=== PATIENT | male | born 1955 | race Caucasian/White ===

== ENCOUNTER → 2020-09-05 10:25 | Outpatient (BNVA) | payer OTHER, SELFPAY | PROVIDERS: PCP Nurse Practitioner Family; Referring Provider Nurse Practitioner Family; Visit Provider Nurse Practitioner Gerontology | DX: E10.42 Type 1 diabetes mellitus with diabetic polyneuropathy (principal); E78.5 Hyperlipidemia, unspecified; I10 Essential (primary) hypertension | CPT/HCPCS: 82947 ==

== ENCOUNTER → 2020-12-06 09:45 | Outpatient (BNVA) | payer OTHER, SELFPAY | PROVIDERS: PCP Nurse Practitioner Family; Visit Provider Nurse Practitioner Gerontology | DX: E10.42 Type 1 diabetes mellitus with diabetic polyneuropathy (principal); I10 Essential (primary) hypertension; E78.5 Hyperlipidemia, unspecified | CPT/HCPCS: 82947 ==

== ENCOUNTER → 2021-03-07 09:50 | Outpatient (BNVA) | payer OTHER, SELFPAY | PROVIDERS: PCP Nurse Practitioner Family; Visit Provider Nurse Practitioner Gerontology | DX: E10.65 Type 1 diabetes mellitus with hyperglycemia (principal); I10 Essential (primary) hypertension; E78.5 Hyperlipidemia, unspecified | CPT/HCPCS: 82947 ==

== ENCOUNTER → 2021-06-06 09:43 | Outpatient (BNVA) | payer OTHER, SELFPAY | PROVIDERS: PCP Nurse Practitioner Family; Visit Provider Nurse Practitioner Gerontology | DX: E10.65 Type 1 diabetes mellitus with hyperglycemia (principal); I10 Essential (primary) hypertension; E78.5 Hyperlipidemia, unspecified | CPT/HCPCS: 82947; 95251 ==

== ENCOUNTER → 2021-10-22 08:51 | Outpatient (BNVA) | payer OTHER, SELFPAY | PROVIDERS: PCP Nurse Practitioner Family; Visit Provider Nurse Practitioner Gerontology | DX: E10.65 Type 1 diabetes mellitus with hyperglycemia (principal); E78.5 Hyperlipidemia, unspecified; I10 Essential (primary) hypertension | CPT/HCPCS: 82947; 83036 ==

== ENCOUNTER 2021-11-24 07:09 | Outpatient (REF) | payer OTHER, SELFPAY ==
[2021-11-24 11:54] LABS: Alanine Aminotransferase 24 U/L (0-40); Albumin Level 3.8 g/dL (3.5-5.0); Alkaline Phosphatase 55 U/L (39-117); Anion Gap 12 (12-20); Aspartate Amino Transferase 31 U/L (5-37); Bilirubin Total 0.5 mg/dL (0.0-1.0); Blood Urea Nitrogen 27 mg/dL (9-16); Calcium 9.3 mg/dL (8.4-10.2); Carbon Dioxide 29 mmol/L (22-29); Chloride 105 mmol/L (96-108); Cholesterol 178 mg/dL; Estimated Glomerular Filt Rate > 60; Glucose Fasting 89 mg/dL (60-99); HDL Cholesterol 61 mg/dL; LDL Cholesterol Calculated 108 mg/dl; Potassium 4.6 mmol/L (3.3-5.1); Sodium 141 mmol/L (135-145); Total Protein 6.4 g/dL (6.5-8.0); Triglycerides 49 mg/dL
[2021-11-24 11:59] LABS: Creatinine Urine 84.68 mg/dL; Microalbum/Creatinine Ratio Ur 9.4 ug/mg cr
[2021-11-24 12:15] LABS: Thyroid Stimulating Hormone 1.34 uIU/mL (0.32-4.0)
== END 2021-11-24 07:10 | disposition home or self-care (01) ==
LOC: HO.HMGCLDS 07:09
PROVIDERS: Visit Provider Nurse Practitioner Gerontology
DX: E10.65 Type 1 diabetes mellitus with hyperglycemia (principal)
CPT/HCPCS: 36415; 80053; 80061; 82043; 84443

== ENCOUNTER → 2021-12-24 13:13 | Outpatient (BNVA) | payer OTHER, SELFPAY | PROVIDERS: PCP Nurse Practitioner Family; Visit Provider Registered Nurse Diabetes Educator ==

== ENCOUNTER → 2022-02-03 14:26 | Outpatient (BNVA) | payer OTHER, SELFPAY | PROVIDERS: PCP Nurse Practitioner Family; Visit Provider Nurse Practitioner Gerontology | DX: E10.9 Type 1 diabetes mellitus without complications (principal); E78.5 Hyperlipidemia, unspecified; I10 Essential (primary) hypertension | CPT/HCPCS: 82947; 83036 ==

== ENCOUNTER → 2022-07-01 12:44 | Outpatient (REF) | payer OTHER, SELFPAY ==
--- NOTE | 2022-07-01 12:46 | CA_ITS ---
Transthoracic Echocardiogram Patient (Last, First, Middle): Vinnie Andres E Gender: Male Date of : 1955 Age: 66 Procedure Date: 07/01/2022 Procedure Type: Transthoracic Echocardiogram Location: OP Height: 182.88 cm Weight: 82.56 kg BSA: 2.05 m2 Heart Rate: bpm BP: 130 / 80 mmHg [employer] Supervisor: Referring MD: Parveen Hardin [facility] Symptoms: R01.1 - Cardiac murmur, unspecified Study Quality: Fair ECG Rhythm: Sinus Conclusions: - The left ventricular systolic function is normal. The calculated ejection fraction is 66% by biplane method. - Moderately increased right ventricular cavity size. - There is mild calcification of the aortic valve. Findings Left Ventricle Normal left ventricular cavity size. There is normal left ventricular wall thickness. The left ventricular systolic function is normal. The calculated ejection fraction is 66% by biplane method. There is no evidence of regional wall motion abnormalities. Diastolic function is normal for age. Right Ventricle Moderately increased right ventricular cavity size. There is normal right ventricular systolic function. Atria Both atria are normal in size. Aortic Valve There is a normal trileaflet aortic valve. There is mild calcification of the aortic valve. There is no aortic valve stenosis. There is no aortic valve regurgitation. Mitral Valve The mitral valve appears normal. There is no mitral valve regurgitation. There is no mitral valve stenosis. Pulmonic Valve The pulmonic valve is likely normal. Tricuspid Valve Normal tricuspid valve structure. There is trace tricuspid valve regurgitation. The pulmonary artery systolic pressure is normal. Great Vessels The aortic annulus, sinuses of valsalva, and asc aorta are normal in size. Venous The inferior vena cava is normal in size and collapses greater than 50% with inspiration. Pericardium/Pleural There is no evidence of pericardial effusion. Prior Study Comparison No prior study available for comparison. Measurements 2D Linear Measurements IVSd: 0.74 0.6-0.9/0.6-1.0 cm LVIDd: 5.38 3.9-5.3/4.2-5.9 cm LVIDd Index: 2.62 2.4-3.2/2.2-3.1 cm/m2 LVIDs: 2.90 2.0-3.6 cm LVPWd: 0.91 0.7-1.1 cm Ao Root: 2.90 2.1-3.5 cm LA Diam: 3.30 2.7-3.8/3.0-4.0 cm LAIDs Index: 1.61 1.5-2.3 cm/m2 LV Mass: 198.14 67-162/88-224 g LV Mass Index: 96.66 43-95/49-115 g/m2 LVOT Diam: 2.00 3.0+(-)1.3 cm 2D Systolic Function EF 4C: 67.20 >55% EF 2C: 64.30 >55% EF BiP: 65.80 >55% Mitral Valve MV Pk E: 0.97 MV PK A: 1.02 MV Decel Time: 244.00 E/A: 1.00 E'Lateral: 13.50 E'Medial: 8.92 E/E' Med: 10.90 E/E' Lat: 7.20 PHT: 71.00 MVA PHT: 3.10 Decel Cass: 3.99 Aortic Valve AoV Pk John: 1.81 AoV Mn John: 1.22 AoV VTI: 0.48 AoV Pk Grad: 13.00 Aov Mn Grad: 7.00 AMELIA Cont.VTI: 1.44 LVOT LVOT Pk John: 0.84 LVOT Mn John: 0.59 LVOT VTI: 0.22 LVOT Pk Grad: 3.00 LVOT Mn Grad: 2.00 LVOT Diam: 2.00 LVOT Area: 3.14 Diastolic Function MV Pk E: 0.97 MV Pk A: 1.02 E/A: 1.00 E'Medial: 8.92 E/E' Med: 10.90 E' Laterial: 13.50 E/E' Lat: 7.20 Right Ventricle TAPSE (mm): 35.00 TVS' John: 14.00 Tricuspid Valve TR Pk John: 1.91 TR Pk Grad: 15.00 RA Press: 3.00 RVSP: 18.00 Great Vessels Aorta Ao Root-2D: 2.90 2.0-3.7 cm Sinus of Valsalva: 2.90 2.0-3.5 cm Ao Asc: 3.30 2.1-3.4 cm Pulmonary Valve PV Pk John: 1.01 Peak PV Grad: 4.00 Updated in Other Vendor System with Status of Final Justino Ang MD electronically signed on 07/02/2022 12:00:12 PM with status of Final
== END ==
LOC: HO.CARD 12:44
PROVIDERS: PCP Nurse Practitioner Family; Visit Provider Nurse Practitioner Family
DX: R01.1 Cardiac murmur, unspecified (principal)
CPT/HCPCS: 93306

== ENCOUNTER → 2022-09-18 09:42 | Outpatient (BNVA) | payer OTHER, SELFPAY | PROVIDERS: PCP Nurse Practitioner Family; Visit Provider Internal Medicine Endocrinology, Diabetes & Metabolism | DX: E10.9 Type 1 diabetes mellitus without complications (principal) | CPT/HCPCS: 82947; 83036; 99213 ==

== ENCOUNTER 2023-02-06 06:38 | Outpatient (REF) | payer OTHER, SELFPAY ==
[2023-02-06 12:16] LABS: MANUAL DIFF FLAG NO
[2023-02-06 12:23] LABS: Basophils Percent Auto 0.7 % (0-2); Eosinophils Absolute Auto 0.3 X10*3/uL (0.0-0.4); Eosinophils Percent Auto 4.2 % (0-4); Imm Gran Abs Auto 0.01 X10*3/uL (0.00-0.03); Imm Gran Pct Auto 0.2 % (0.0-0.4); Lymphocytes Absolute Auto 1.5 X10*3/uL (1.2-4.9); Lymphocytes Percent Auto 24.5 % (20-40); Mean Corpuscular HGB Conc 31.8 g/dl (31.0-36.0); Mean Corpuscular Hemoglobin 30.9 pg (27.0-33.0); Mean Corpuscular Volume 97.1 fL (80.0-98.0); Mean Platelet Volume 9.7 fL (9.4-12.4); Monocytes Absolute Auto 0.6 X10*3/uL (0.1-1.2); Monocytes Percent Auto 9.2 % (2-11); Neutrophils Absolute Auto 3.7 x10*3/uL (2.0-8.3); Neutrophils Percent Auto 61.2 % (45-73); Platelet Count 160 X10*3/uL (160-400); Red Blood Count 4.53 X10*6/uL (4.60-5.80); Red Cell Distribution Width 12.8 % (11.0-16.0)
[2023-02-06 12:32] LABS: Appearance Urine Clear; Color Urine Yellow; Glucose Urine UA Negative (Negative); Leukocyte Esterase Urine Negative (Negative); Nitrite Urine Negative (Negative); PH 5.5 (5.0-9.0); Urine Blood Negative (Negative); Urine Ketones Negative (Negative); Urine Protein Negative (Neg-Trace)
[2023-02-06 12:40] LABS: Alanine Aminotransferase 41 U/L (0-40); Albumin Level 3.8 g/dL (3.5-5.0); Alkaline Phosphatase 54 U/L (39-117); Anion Gap 10 (12-20); Aspartate Amino Transferase 44 U/L (5-37); Bilirubin Total 0.6 mg/dL (0.0-1.0); Blood Urea Nitrogen 24 mg/dL (9-16); Calcium 9.2 mg/dL (8.4-10.2); Carbon Dioxide 31 mmol/L (22-29); Chloride 106 mmol/L (96-108); Cholesterol 130 mg/dL; Estimated Glomerular Filt Rate > 60; Glucose Fasting 114 mg/dL (60-99); HDL Cholesterol 59 mg/dL; LDL Cholesterol Calculated 63 mg/dl; Potassium 4.8 mmol/L (3.3-5.1); Sodium 142 mmol/L (135-145); Triglycerides 42 mg/dL
[2023-02-06 12:59] LABS: Prostate Specific Antigen Scr 0.22 ng/mL (<0.05-4.0); TSH reflex Free T4 1.21 uIU/mL (0.32-4.0)
[2023-02-07 15:44] LABS: LDL Cholesterol Direct 58 mg/dL (<100)
== END 2023-02-06 06:39 | disposition home or self-care (01) ==
LOC: HO.HMGCLDS 06:38
PROVIDERS: Nurse Practitioner Gerontology; PCP Nurse Practitioner Family; Visit Provider Nurse Practitioner Family
DX: Z00.00 Encounter for general adult medical examination without abnormal findings (principal); E10.65 Type 1 diabetes mellitus with hyperglycemia; R74.8 Abnormal levels of other serum enzymes; Z12.5 Encounter for screening for malignant neoplasm of prostate
CPT/HCPCS: 36415; 80053; 80061; 81003; 83721; 84153; 84443; 85025

== ENCOUNTER 2023-03-12 09:33 | Outpatient (REF) | payer OTHER, SELFPAY ==
[2023-03-12 12:52] LABS: HBS Num1 0.21 mIU/mL (0-7.99); HBsAGNum1 0.26 S/CO (0.00-0.99); Hepatitis A Antibody IgM 0.17 Index (0-0.79); Hepatitis B Core Antibody Nonreactive (Nonreactive); Hepatitis B Surface Antigen Negative (Negative); ~HepC Num1 0.14 S/CO (0.00-0.79); ~Hepatitis A Antibody IgM Nonreactive (Nonreactive); ~Hepatitis B Surface Antibody NONREACTIVE (Nonreactive); ~Hepatitis C Antibody Nonreactive (Nonreactive)
== END 2023-03-12 09:34 | disposition home or self-care (01) ==
LOC: HO.HMGCLDS 09:33
PROVIDERS: PCP Nurse Practitioner Family; Visit Provider Nurse Practitioner Family
DX: R74.8 Abnormal levels of other serum enzymes (principal)
CPT/HCPCS: 36415; 86704; 86706; 86709; 86803; 87340

== ENCOUNTER → 2023-03-18 14:37 | Outpatient (BNVA) | payer OTHER, SELFPAY | PROVIDERS: PCP Nurse Practitioner Family; Visit Provider Internal Medicine Endocrinology, Diabetes & Metabolism | DX: E10.9 Type 1 diabetes mellitus without complications (principal); I10 Essential (primary) hypertension; E78.5 Hyperlipidemia, unspecified | CPT/HCPCS: 82947; 83036 ==

== ENCOUNTER 2023-04-26 08:15 | Outpatient (REF) | payer OTHER, SELFPAY ==
--- NOTE | ~2023-04-26 | US_ITS ---
EXAMINATION: US ABDOMEN COMPLETE CLINICAL INFORMATION: Elevated liver enzymes. COMPARISON: None available. TECHNIQUE: Real-time imaging of the abdominal viscera. Technically limited study secondary to body habitus and Dexcom device in right upper quadrant in area of vin hepatis. FINDINGS: PANCREAS: The pancreas appears unremarkable, without masses or ductal dilatation, with the exception of the tail which is obscured by bowel gas. ABDOMINAL AORTA: Atherosclerotic changes are present in the aorta. The distal aorta is mildly dilated at 2.3 x 2.4 cm. INFERIOR VENA CAVA: Visualized portions unremarkable. LIVER: The liver is normal in size. The liver contour is normal. Parenchymal echogenicity is normal. No focal hepatic lesion. There is no intrahepatic biliary duct dilatation seen. GALLBLADDER: Normal. The gallbladder is physiologically distended without evidence of stones, sludge, polyps, wall thickening or pericholecystic fluid. COMMON BILE DUCT: Could not be seen secondary to overlying bowel gas. RIGHT KIDNEY: Normal. No hydronephrosis. No renal calculi or focal parenchymal lesions. The kidney measures 10.4 cm in maximum dimension. LEFT KIDNEY: Normal. No hydronephrosis. No renal calculi or focal parenchymal lesions. The kidney measures 10.7 cm in maximum dimension. SPLEEN: Normal. The spleen measures 9.4 cm in maximum dimension. FREE FLUID: None. US/US abdomen complete IMPRESSION: 1. A cause for the patient's elevated liver enzymes is not found. 2. Mild aneurysmal dilatation of the distal aorta at 2.4 cm.
== END 2023-04-26 08:16 | disposition home or self-care (01) ==
LOC: HO.HMGCX 08:15
PROVIDERS: PCP Nurse Practitioner Family; Visit Provider Nurse Practitioner Family
DX: R74.8 Abnormal levels of other serum enzymes (principal)
CPT/HCPCS: 76700

== ENCOUNTER 2023-09-16 13:41 | Outpatient (AMB) | payer OTHER, SELFPAY ==
--- NOTE | 2023-09-16 13:42 | MHC.OFFVIS ---
Intake Vital Signs 09/16/23 13:43 Height 6 ft Weight 179 lb 14.355 oz BMI 24.4 BP 142/46 H Blood Pressure Location Lt brachial Position Sitting Pulse 75 Pulse Source Pulse Oximeter Intake Visit Reasons: DM with dexcom Intake Note: Patient present today to follow up on Type 1 Diabetes Mellitus. 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 Accompanied by: Self / Same As Patient Allergies No Known Allergies Allergy (Verified 09/16/23 13:55) Medication List - Last Reconciled 09/16/23 by Roland Pennington MD blood sugar diagnostic (FreeStyle Lite Strips) 1 strip miscellaneous .5 times a day 30 days blood-glucose meter (FreeStyle Lite Meter kit) As directed 4x/day blood-glucose meter,continuous As directed blood-glucose sensor (Dexcom G6 Sensor device) As directed blood-glucose transmitter (Dexcom G6 Transmitter device) As directed cilostazol 100 mg PO BID 90 days ezetimibe 10 mg PO DAILY glucagon 3 mg/actuation (Baqsimi) 3 mg intranasal ONCE 30 days insulin glargine (Lantus Solostar U-100 Insulin) 14 units (0.14 mL) subcut BEDTIME 90 days insulin lispro (Humalog KwikPen (U-100) Insulin) 6 units breakfast, lunch 8 units for dinner and 1 unit for bg over 150mg/dl and every 50mg/dl with a max a 5 extra units, 1-2 units with snack subcut up to 6 times a day; up to 25 units today lisinopril 30 mg (1.5 x 20 mg) PO DAILY pen needle, diabetic (BD Ultra-Fine Naomi Pen Needle) seven times a day rosuvastatin 40 mg PO DAILY HPI HPI Comments History of Present Illness Details Patient is 67 yo male with DM type 1 diagnosed at age 12, who presents for management of diabetes. Past medical history: DM1, HTN, HLD Micro and macrovascular complications: none known Diabetes medications: Lantus 14 units.? Humalog 1 unit for his snacks.? He will continue to use 6 units of Humalog prior to breakfast and lunch and 8 with dinner.? He may increase by 1-2 units for for larger meals.? He will also correct for meals 1 unit for every 50 mg/dL over 150 up to a max of 5 units. Continuous glucose monitoring: In the last 2 weeks average blood glucose 145. C GM is active 100% GMI 6.8 Blood glucose very low less than 54, 1%. Glucose low less than ,2%. Glucose in target range of 70-180 ,76%. Blood glucose high over 180, 18%. Glucose very high over 250, 4%. He occasionally has glucose surges which continue overnight. Symptoms reported: denies numbness, tingling cramping Hypoglycemia: 1 every 2 weeks, usually with heavier activity at work. 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 Mother No problems noted. Social History Household Members: Spouse Housing: House Alcohol intake: never Patient Tobacco Use Status: Former Tobacco user e-Cigarette/Vaping Use: Never Used Second Hand Smoke Exposure: No Current occupational status: employed Current occupation: [employer] Current occupational exposures/hazards: No Cognitive needs: No Hearing needs: No Vision needs: No Physical Exam Vital Signs: Last Vital Signs Pulse 75 09/16/23 13:43 BP 142/46 H 09/16/23 13:43 BMI result Body Mass Index 24.4 Absence of Cushingoid features. Absence of acromegalic features. Neck exam reveals nl size thyroid about 15 gms. No thyroid nodules palpable. No carotid bruits present. Lungs CTA. Heart S1 S2, Reg R/R. No M/R/ G. Skin exam reveals absence of vitiligo or acanthosis nigricans. Abdominal exam reveals Soft NT/ND with NA BS. No organomegaly present. Extrem Other: Visual exam of foot performed. No ulcerations or open lesions. No onchomycosis, no callouses.Pulses 2 + distally. Sensation intact to monofilament exam. Vibratory sensation sensed 10 seconds in right, 10 seconds in left with 128 Hz tuning fork Results AMB Hemoglobin A1c AMB Hemoglobin A1c 6.5 % Last Edit by Gala Clark on 09/16/23 14:06 Results Reviewed Results Reviewed: 09/16/23 13:52 Glucose, Whole Blood Routine Laboratory Last Values Glucose (Clinic) 219 mg/dL (60-115) H 09/16/23 13:52 Assessment & Plan Assessment & Plan (1) T1DM (type 1 diabetes mellitus): Code(s): E10.9 - Type 1 diabetes mellitus without complications Qualifiers: Diabetes mellitus complication status: without complication Qualified Code(s): E10.9 - Type 1 diabetes mellitus without complications Plan: This is a 66-year-old white male with a history of longstanding type 1 diabetes on basal-bolus insulin with excellent glycemic control and no known microvascular or macrovascular complications. Plan is to continue the current regimen. Orders: Orders AMB Hemoglobin A1c Today E10.9 - Type 1 diabetes mellitus without complications Microalbumin, Random (w Creat) Today E10.9 - Type 1 diabetes mellitus without complications Coding Level of Care Code Est Pt Level 4 (29767) Diagnoses Type 1 diabetes mellitus without complication E10.9 Diabetes mellitus complication status: without complication
[2023-09-16 13:43] VITALS: BP 142/46; PULSE 75; BMI 24.4
[2023-09-16 13:56] LABS: Glucose, Whole Blood 219 mg/dL (60-115)
== END 2023-09-16 14:17 | disposition home or self-care (01) ==
PROVIDERS: PCP Nurse Practitioner Family; Visit Provider Internal Medicine Endocrinology, Diabetes & Metabolism
DX: E10.9 Type 1 diabetes mellitus without complications (principal)
CPT/HCPCS: 99214

== ENCOUNTER → 2023-09-16 13:41 | Outpatient (BNVA) | payer OTHER, SELFPAY | PROVIDERS: PCP Nurse Practitioner Family; Visit Provider Internal Medicine Endocrinology, Diabetes & Metabolism | DX: E10.9 Type 1 diabetes mellitus without complications (principal); I10 Essential (primary) hypertension; E78.5 Hyperlipidemia, unspecified | CPT/HCPCS: 82947; 83036 ==

== ENCOUNTER 2024-02-14 11:06 | Outpatient (REF) | payer OTHER, SELFPAY ==
[2024-02-14 14:12] LABS: Creatinine Urine 65.93 mg/dL; Microalbum/Creatinine Ratio Ur 68.2 ug/mg cr (<30)
== END 2024-02-14 11:07 | disposition home or self-care (01) ==
LOC: HO.HMGCLDS 11:06
PROVIDERS: PCP Nurse Practitioner Family; Visit Provider Internal Medicine Endocrinology, Diabetes & Metabolism
DX: E10.9 Type 1 diabetes mellitus without complications (principal)
CPT/HCPCS: 82043; 82570

== ENCOUNTER 2024-03-29 07:55 | Outpatient (REF) | payer OTHER, SELFPAY ==
--- NOTE | ~2024-03-29 | US_ITS ---
EXAMINATION: US RETROPERITONEAL LIMITED (AORTA) CLINICAL INFORMATION: Abdominal aortic aneurysm without rupture, unspecified. COMPARISON: None available. TECHNIQUE: Lorenzo-scale, color Doppler and spectral Doppler evaluation of the abdominal aorta. FINDINGS: There is atherosclerotic disease The measurements of the aorta in maximum AP and transverse dimensions respectively are as follows: Proximal: 2.6 x 2.9 cm. Mid: 2.9 x 2.2 cm. Distal: 2.2 x 2.3 cm. PSV: 106 cm/s. The measurements of the common iliac arteries in maximum AP and TRV dimensions are as follows: Right Common Iliac Artery: 1.3 x 1.3 cm. Left Common Iliac Artery: 1.2 x 1.3 cm. US/US abdominal aortic aneurysm IMPRESSION: No abdominal aortic or iliac artery aneurysm.
== END 2024-03-29 07:56 | disposition home or self-care (01) ==
LOC: HO.HMGCX 07:55
PROVIDERS: PCP Nurse Practitioner Family; Visit Provider Nurse Practitioner Family
DX: I71.40 Abdominal aortic aneurysm, without rupture, unspecified (principal)
CPT/HCPCS: 76706

== ENCOUNTER 2024-05-02 06:45 | Outpatient (REF) | payer OTHER, SELFPAY ==
[2024-05-02 12:29] LABS: Anion Gap 13 (12-20); Blood Urea Nitrogen 23 mg/dL (9-16); Calcium 9.7 mg/dL (8.4-10.2); Carbon Dioxide 29 mmol/L (22-29); Chloride 105 mmol/L (96-108); Cholesterol 120 mg/dL (<200); Estimated Glomerular Filt Rate > 60; Glucose Random 91 mg/dL (60-115); HDL Cholesterol 59 mg/dL (>40); LDL Cholesterol Calculated 52 mg/dL (<100); Potassium 4.3 mmol/L (3.3-5.1); Sodium 143 mmol/L (135-145); Triglycerides 47 mg/dL (<150)
== END 2024-05-02 06:46 | disposition home or self-care (01) ==
LOC: HO.HMGCLDS 06:45
PROVIDERS: PCP Nurse Practitioner Family; Visit Provider Internal Medicine Endocrinology, Diabetes & Metabolism
DX: E10.65 Type 1 diabetes mellitus with hyperglycemia (principal)
CPT/HCPCS: 36415; 80048; 80061

== ENCOUNTER 2024-05-08 09:46 | Outpatient (AMB) | payer OTHER, SELFPAY ==
[2024-05-08 09:48] VITALS: BP 136/44; PULSE 58; BMI 24.3
--- NOTE | 2024-05-08 09:48 | A.OFFVIS_ITS ---
Vital Signs 05/08/24 09:48 Height 6 ft Weight 179 lb 7.3 oz BMI 24.3 BP 136/44 L Blood Pressure Location Lt brachial Position Sitting Pulse 58 Pulse Source Pulse Oximeter Intake Visit Reasons: [id number] Intake Note: Patient present today to follow up on Type 1 Diabetes Mellitus. 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 Required: No Accompanied by: Self / Same As Patient Allergies No Known Allergies Allergy (Verified 05/08/24 09:53) Medication List - Last Reconciled 05/08/24 by Roland Pennington MD blood sugar diagnostic (FreeStyle Lite Strips) 1 strip miscellaneous .5 times a day 30 days blood-glucose meter (FreeStyle Lite Meter kit) As directed 4x/day blood-glucose meter,continuous As directed blood-glucose sensor (Dexcom G6 Sensor device) As directed blood-glucose transmitter (Dexcom G6 Transmitter device) As directed cilostazol 100 mg PO BID 90 days ezetimibe 10 mg PO DAILY glucagon 3 mg/actuation (Baqsimi) 3 mg intranasal ONCE 30 days insulin glargine (Lantus Solostar U-100 Insulin) 14 units (0.14 mL) subcut BEDTIME insulin lispro (Humalog KwikPen (U-100) Insulin) 1 sliding scale dose subcut USEASDIRECTD lisinopril 30 mg (1.5 x 20 mg) PO DAILY pen needle, diabetic (BD Naomi 2nd Gen Pen Needle) USE DIRECTED SEVEN TIMES PER DAY rosuvastatin 40 mg PO DAILY HPI Comments Details: Patient is 68 yo male with DM type 1 diagnosed at age 12, who presents for management of diabetes. Past medical history: DM1, HTN, HLD Micro and macrovascular complications: none known Diabetes medications: Lantus 14 units.? Humalog 1 unit for his snacks.? He will continue to use 6 units of Humalog prior to breakfast and lunch and 8 with dinner.? He may increase by 1-2 units for for larger meals.? He will also correct for meals 1 unit for every 50 mg/dL over 150 up to a max of 5 units. Continuous glucose monitoring: In the last 2 weeks average blood glucose 134. C GM is active 93% GMI 6.5 Blood glucose very low less than 54, 1%. Glucose low less than ,2%. Glucose in target range of 70-180 ,83%. Blood glucose high over 180, 14%. Glucose very high over 250, 1%. He occasionally has glucose surges which continue overnight. Symptoms reported: denies numbness, tingling cramping Hypoglycemia: 1 every 2 weeks, usually with heavier activity at work. 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 Laboratory Tests 10/22/21 11/24/21 11/24/21 09:16 07:19 07:19 Creatinine 1.15 Estimated GFR > 60 Hgb A1c (Clinic) 7.5 H Triglycerides 49 Cholesterol 178 LDL Cholesterol, Calc 108 HDL Cholesterol 61 TSH 1.34 Microalb/Creat Ratio 9.4 [facility] Medical History (Reviewed 03/24/23 @ 10:20 by Parveen Hardin, [facility]) Diabetes mellitus type 1, uncontrolled Essential hypertension Hyperlipidemia LDL goal <100 T1DM (type 1 diabetes mellitus) Surgical History History of carpal tunnel surgery of right wrist Family History Father No problems noted. Mother No problems noted. Social History Household Members: Spouse Housing: House Alcohol intake: never Patient Tobacco Use Status: Former Tobacco user e-Cigarette/Vaping Use: Never Used Second Hand Smoke Exposure: No Current occupational status: employed Current occupation: [employer] Current occupational exposures/hazards: No Cognitive needs: No Hearing needs: No Vision needs: No Physical Exam Vital Signs: Last Vital Signs Pulse 58 05/08/24 09:48 BP 136/44 L 05/08/24 09:48 BMI result Body Mass Index 24.3 Absence of Cushingoid features. Absence of acromegalic features. Neck exam reveals nl size thyroid about 15 gms. No thyroid nodules palpable. No carotid bruits present. Lungs CTA. Heart S1 S2, Reg R/R. No M/R/ G. Skin exam reveals absence of vitiligo or acanthosis nigricans. Abdominal exam reveals Soft NT/ND with NA BS. No organomegaly present. Extrem Other: Visual exam of foot performed. No ulcerations or open lesions. No onchomycosis, no callouses.Pulses 2 + distally. Sensation intact to monofilament exam. Vibratory sensation sensed 10 seconds in right, 10 seconds in left with 128 Hz tuning fork Results AMB Hemoglobin A1c AMB Hemoglobin A1c 7.0 % Last Edit by HITESH Stephen on 05/08/24 10:04 Results Reviewed Results Reviewed: Laboratory Last Values Glucose (Clinic) 143 mg/dL (60-115) H 05/08/24 09:55 Hgb A1c (Clinic) 7.0 % (4.0-6.0) H 05/08/24 09:58 Assessment & Plan Assessment & Plan (1) T1DM (type 1 diabetes mellitus): Code(s): E10.9 - Type 1 diabetes mellitus without complications Category: Medical Qualifiers: Diabetes mellitus complication status: without complication Qualified Code(s): E10.9 - Type 1 diabetes mellitus without complications Plan: This is a 66-year-old white male with a history of longstanding type 1 diabetes on basal-bolus insulin with excellent glycemic control and no known microvascular or macrovascular complications. Plan is to continue the current regimen. Orders: Orders AMB Hemoglobin A1c Today E10.9 - Type 1 diabetes mellitus without complications, Z13.9 - Encounter for screening, unspecified Microalbumin, Random (w Creat) Today E10.9 - Type 1 diabetes mellitus without complications Coding Level of Care Code Est Pt Level 4 (71966) Complex EM visit Add On G2211 Diagnoses Type 1 diabetes mellitus without complication E10.9 Diabetes mellitus complication status: without complication
[2024-05-08 09:59] LABS: Glucose, Whole Blood 143 mg/dL (60-115)
== END 2024-05-08 10:08 | disposition home or self-care (01) ==
PROVIDERS: PCP Nurse Practitioner Family; Visit Provider Internal Medicine Endocrinology, Diabetes & Metabolism
DX: Z13.9 Encounter for screening, unspecified (principal); E10.9 Type 1 diabetes mellitus without complications
CPT/HCPCS: 99214; G2211

== ENCOUNTER → 2024-05-08 09:46 | Outpatient (BNVA) | payer OTHER, SELFPAY | PROVIDERS: PCP Nurse Practitioner Family; Visit Provider Internal Medicine Endocrinology, Diabetes & Metabolism | DX: E10.9 Type 1 diabetes mellitus without complications (principal) | CPT/HCPCS: 82947; 83036 ==

== ENCOUNTER 2024-08-02 08:38 | Outpatient (AMB) | payer OTHER, SELFPAY ==
--- NOTE | 2024-08-02 08:46 | MHC.PC.OV ---
Vital Signs 08/02/24 08:47 Height 6 ft Weight 179 lb BMI 24.3 BP 120/60 Blood Pressure Location Rt brachial Position Sitting Pulse 66 Pulse Source Pulse Oximeter Pulse Oximetry (%) 96 Intake Visit Reasons: PE Intake Note: pt is here for PE Allergies No Known Allergies Allergy (Verified 08/02/24 08:49) Tobacco use date assessed: 08/02/24 Fall risk assessment: No Falls in past year Last assessed Fall Risk: 08/02/24 Dental Screening Dental Screen Date: 08/02/24 Did you have a dental visit in the last 12 months?: Yes Did you have a dental problem in the last 6 months where you did not have access to dental care?: No Was dental information given to patient?: Patient has dentist HPI PE HPI Details pt is here for a PE. Pt sees endo for his diabetes. cologuard is up to date. Pt denies any weak urinary stream, nocturia, incomplete bladder emptying. [facility] Medical History T1DM (type 1 diabetes mellitus) Diabetes mellitus type 1, uncontrolled Essential hypertension Hyperlipidemia LDL goal <100 Surgical History History of carpal tunnel surgery of right wrist Family History Father No problems noted. Mother No problems noted. Social History Household Members: Spouse Housing: House Alcohol intake: never Patient Tobacco Use Status: Former Tobacco user e-Cigarette/Vaping Use: Never Used Second Hand Smoke Exposure: No Current occupational status: employed Current occupation: [employer] Current occupational exposures/hazards: No Cognitive needs: No Hearing needs: No Vision needs: No Questionnaire PHQ-9 Over the last 2 weeks, how often have you been bothered by any of the following problems? 1. Little interest or pleasure in doing things: not at all 2. Feeling down, depressed, or hopeless: not at all 3. Trouble falling or staying asleep, or sleeping too much: not at all 4. Feeling tired or having little energy: not at all 5. Poor appetite or overeating: not at all 6. Feeling bad about yourself - or that you are a failure or have let yourself or your family down: not at all 7. Trouble concentrating on things, such as reading the newspaper or watching television: not at all 8. Moving or speaking so slowly that other people could have noticed. Or the opposite - being so fidgety or restless that you have been moving around a lot more than usual: not at all 9. Thoughts that you would be better off or of hurting yourself in some way: not at all Total score: 0 Depression Screening Interpretation: Negative Depression Screening Done: Yes 56284 - PHQ-9 Billing: Yes Source: Developed by Drs. Roland Navarrete, Gabby Combs, Jaylen Kay and colleagues, with an educational leila from [employer]. Thrive Questionnaire Date Thrive assessed: 08/02/24 I am a: Patient What is your living situation today?: I have a steady place to live Within the past 12 months, did the food you bought not last and you didn't have the money to get more?: Never true Within the past 12 months, did you worry whether your food would run out before you got money to buy more?: Never true Do you have trouble paying for medicines?: Yes Do you have trouble getting transportation to medical appointments?: No Do you have trouble paying your heating and electricity bill?: Yes Do you have trouble taking care of your child, family member or friend?: No Do you have trouble with day-to-day activities such as bathing, preparing meals, shopping, managing finances, etc.?: No Are you currently unemployed and looking for a job?: No Are you interested in more education?: No Please select the resources that you would like help with: None Currently or been in a relationship where the following occur: No concerns reported THRIVE Score: 1 AUDIT C Alcohol Use Questionnaire (AUDIT-C) 1. How often do you have a drink containing alcohol?: Never 3. How often do you have six or more drinks on one occasion?: Never Total Score: 0 Score Reviewed/Action Taken: Yes JASON-7 AMB Questionnaire JASON-7 Date JASON - 7 assessed: 08/02/24 Feeling nervous, anxious, or on edge: 1 = Several days Not being able to stop or control worryin = Several days Worrying too much about different things: 1 = Several days Trouble relaxin = Several days Being so restless that it is hard to sit still: 1 = Several days Becoming easily annoyed or irritable: 1 = Several days Feeling afraid as if something awful might happen: 1 = Several days Total JASON-7 score (0-4 normal; 5-9 mild; 10-14 moderate; 15-21 severe): 7 Source: Developed by Drs. Roland Navarrete, Gabby Combs, Jaylen Kay and colleagues, with an educational leila from [employer]. JASON-7 Assessment Billing JASON-7 Assessment Tool: JASON-7 Assessment 44372 Review of Systems Const Denies chills and Denies fever(s) Eyes Denies blurry vision ENT Denies vertigo, Denies dizziness and Denies sore throat Card Denies chest pain at rest, Denies chest pain with activity, Denies diaphoresis, Denies dyspnea and Denies dyspnea on exertion Resp Denies cough, Denies dyspnea, Denies dyspnea on exertion and Denies wheezing GI Denies abdominal pain, Denies melena, Denies hematochezia, Denies constipation, Denies diarrhea and Denies loose stools Denies hematuria Musc Denies numbness and Denies tingling Skin/Breast Denies lesions Neuro Denies vertigo, Denies dizziness, Denies numbness and Denies tingling Psych Denies anxiety, Denies depression, Denies homicidal ideation, Denies suicidal ideation and Denies other (substance abuse) Aller/Immun Denies wheezing Physical exam (Primary Care) Vital Signs: Last Vital Signs Pulse 66 08/02/24 08:47 BP 120/60 08/02/24 08:47 Pulse Ox 96 08/02/24 08:47 BMI result Body Mass Index 24.3 Tobacco/Smoking Status: Tobacco use Status Tobacco use date assessed 08/02/24 08/02/24 08:51 Patient Tobacco Use Status Former Tobacco user 08/02/24 08:46 e-Cigarette/Vaping Use Never Used 08/02/24 08:46 PHQ-9: PHQ-9 Score PHQ-9: Total score 0 08/02/24 08:51 Depression Screening Interpretation: Negative Thrive Assessment: Date of Thrive Assessment Date Thrive assessed 08/02/24 08/02/24 08:51 Currently or been in a relationship where the following occur: No concerns reported Const General: cooperative Nutritional Appearance: well nourished Orientation/consciousness: patient oriented x3 HENMT Head: Yes normal to inspection, Yes normocephalic and Yes atraumatic Ears: TM normal on the right and TM normal on the left Eyes General: appearance normal, both eyes and all related structures Alignment and Position: alignment normal and position normal Neck Neck: Yes normal visual inspection, Yes no lymphadenopathy and Yes supple Resp Effort & Inspection: normal respiratory effort Auscultation: clear to auscultation bilaterally Cardio Rate: regular rate Rhythm: regular rhythm Heart sounds: S1 normal heart sound present, S2 normal heart sound present and Murmur heart sound present systolic GI Palpation (GI): Soft to palpation and nontender Auscultation: normal bowel sounds Male General Exam: Yes normal external exam Penis: normal penis Scrotum: scrotum normal, testes descended bilaterally and no inguinal hernias Testes: no testicular mass Skin Other: scalp with multiple macular tissue colored lesions, more dry and flaky. Rashes: no rashes Neuro General: patient oriented x3, moves all extremities, no focal motor deficits and deep tendon reflexes 2+ bilaterally Romberg Test: Negative Extrem Other: + sensation with monofilament (feet). Intact bilat, though onychomycosis noted bilat Right lower extremity: no edema Left lower extremity: no edema Psych Affect: normal affect Attitude: cooperative Thought process: Normal thought process present Assessment and Plan Assessment & Plan (1) Physical exam: Code(s): Z00.00 - Encounter for general adult medical examination without abnormal findings Plan: labs ordered (2) T1DM (type 1 diabetes mellitus): Code(s): E10.9 - Type 1 diabetes mellitus without complications Qualifiers: Diabetes mellitus complication status: without complication Qualified Code(s): E10.9 - Type 1 diabetes mellitus without complications Plan: sees endo (3) Screening PSA (prostate specific antigen): Code(s): Z12.5 - Encounter for screening for malignant neoplasm of prostate Plan: lab ordered (4) Skin lesion: Code(s): L98.9 - Disorder of the skin and subcutaneous tissue, unspecified Plan: referred to derm Orders: Orders Complete Blood Count Auto Diff Today Z00.00 - Encounter for general adult medical examination without abnormal findings Comprehensive G[place]mith. Panel Fast Today Z00.00 - Encounter for general adult medical examination without abnormal findings TSH reflex Free T4 Today Z00.00 - Encounter for general adult medical examination without abnormal findings Lipid Panel Today Z00.00 - Encounter for general adult medical examination without abnormal findings Prostate Specific Antigen Scr Today Z12.5 - Encounter for screening for malignant neoplasm of prostate UA CC w/rflx Micro + Cult Today Z00.00 - Encounter for general adult medical examination without abnormal findings Referrals Dermatology Referral L98.9 - Disorder of the skin and subcutaneous tissue, unspecified Coding Level of Care Code Est Pt Prev Care >65y(84436) Diagnoses Physical exam Z00.00 Type 1 diabetes mellitus without complication E10.9 Diabetes mellitus complication status: without complication Screening PSA (prostate specific antigen) Z12.5 Skin lesion L98.9 Additional Codes JASON-7 Assessment Billing - JASON-7 Assessment Tool: JASON-7 Assessment [id number] ([id number])
[2024-08-02 08:47] VITALS: BP 120/60; PULSE 66; O2SAT 96; BMI 24.3
== END 2024-08-02 09:15 | disposition home or self-care (01) ==
PROVIDERS: PCP Nurse Practitioner Family; Visit Provider Nurse Practitioner Family
DX: Z00.00 Encounter for general adult medical examination without abnormal findings (principal); E10.9 Type 1 diabetes mellitus without complications; Z12.5 Encounter for screening for malignant neoplasm of prostate; L98.9 Disorder of the skin and subcutaneous tissue, unspecified

== ENCOUNTER → 2024-08-02 08:38 | Outpatient (BNVA) | payer OTHER, SELFPAY | PROVIDERS: PCP Nurse Practitioner Family; Visit Provider Nurse Practitioner Family | DX: Z00.01 Encounter for general adult medical examination with abnormal findings (principal); L98.9 Disorder of the skin and subcutaneous tissue, unspecified; E10.9 Type 1 diabetes mellitus without complications | CPT/HCPCS: 96127 ==

== ENCOUNTER 2024-09-08 08:48 | Outpatient (AMB) | payer OTHER, SELFPAY ==
--- NOTE | 2024-09-08 07:38 | A.OFFVIS_ITS ---
Vital Signs 09/08/24 08:55 Height 6 ft Weight 178 lb 9.191 oz BMI 24.2 BP 138/76 Blood Pressure Location Rt brachial Position Sitting Pulse 60 Pulse Source Pulse Oximeter Intake Visit Reasons: T1DM/CONFIRMED Intake Note: Patient present today to follow up on Type 1 Diabetes Mellitus. Last Diabetic eye exam was on: 05/02/2024 Last Podiatry exam was on: Does not see a Nail Artist Most recent HbA1c: 7.1%, 09/08/2024 Random Glucose- 129 mg/dL, Today Transformation Coach Required: No Accompanied by: Self / Same As Patient Allergies No Known Allergies Allergy (Verified 09/08/24 08:51) HPI Comments Details: Patient is 68 yo male with DM type 1 diagnosed at age 12, who presents for [facility] of diabetes. He was last seen by Dr. Pennington 05/08/2024.Hgb A1C 09/08/24 %, 05/08/24 7%. He has been well controlled since 2021. Past medical history: DM1, HTN, HLD Micro and macrovascular complications: none known Diabetes medications: Lantus 14 units Humalog 1-2 unit for his snacks. Breakfast 6 units Lunch 6 units Supper 8 units increase insulin 1-2 units for larger meals Correction factor for meals 1 unit for every 50 mg/dL over 150 up to a maximum of 5 units Dexcom average glucose: 135 14 day continuous glucose monitor report reviewed Glucose Managment indicator 6.5 % Days with CGM data 93 % TIme in ranges: 2 % very high (above 250) 13 % high ?(181-250) 82 % in range ?(70-180] 2 % low (69-55) 1 % ?very low (below 54) Interpretation very well-controlled with persistent low 3-6 a.m. 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 Mother No problems noted. Social History Household Members: Spouse Housing: House Alcohol intake: never Patient Tobacco Use Status: Former Tobacco user e-Cigarette/Vaping Use: Never Used Second Hand Smoke Exposure: No Current occupational status: employed Current occupation: [employer] Current occupational exposures/hazards: No Cognitive needs: No Hearing needs: No Vision needs: No Physical Exam Vital Signs: Last Vital Signs Pulse 60 09/08/24 08:55 BP 138/76 09/08/24 08:55 BMI result Body Mass Index 24.2 Const Other: Absence of Cushingoid features. Absence of acromegalic features. Neck exam reveals nl size thyroid about 15 gms. No thyroid nodules palpable. No carotid bruits present. Lungs CTA. Heart S1 S2, Reg R/R. No M/R G. Skin exam reveals absence of vitiligo or acanthosis nigricans. No edema Visual exam of foot performed. No ulcerations or open lesions. No inter digit maceration or fissuring. + onychomycosis, nails elongated and thickened no callouses. Sensation intact to monofilament exam. Vibratory sensation is normal with 128 Hz tuning fork. Office Procedures Glucose Monitoring Details Details: see [facility] [id number] - Glucose monitoring, continuous-physician I&R Procedure code (CPT) selection complete Results AMB Hemoglobin A1c AMB Hemoglobin A1c 7.1 % Last Edit by HITESH Reyes on 09/08/24 09:15 Results Reviewed Results Reviewed: Laboratory Last Values Glucose (Clinic) 129 mg/dL (60-115) H 09/08/24 09:02 Assessment & Plan Assessment & Plan (1) T1DM (type 1 diabetes mellitus): Code(s): E10.9 - Type 1 diabetes mellitus without complications Category: Medical Qualifiers: Diabetes mellitus complication status: without complication Qualified Code(s): E10.9 - Type 1 diabetes mellitus without complications Plan: 68-year-old male with nephropathy with a normal kidney function on basal bolus insulin with A1C of 7.2% and consistent lows overnight on sensor readings between 3 and 06:00am. Change Lantus to Tresiba 14 units. Continue current dosing of NovoLog. Patient was also shown the CeQur 4 day insulin patch which he may consider down the road. He is not interested in a pump. ABRAM ordered. He was advised to have fasting blood work and urine test as ordered by his PCP. He is up-to-date with immunizations with the exception of RSV which he declined secondary to cost. I recommended that he see a poultry hatchery laborer due to his nails being so thick and long. He declined but was advised to closely watch his feet and to make sure there were no ulcers or signs of infection. The patient had an opportunity to ask questions regarding treatment plan. The patient expressed understanding and agreement with the above treatment plan. The patient is aware they should contact our office by phone for worsening glucose readings or for any low blood sugars which may warrant a change in diabetes medication. Compliance is encouraged with medications and any followup testing/consults which may have been ordered. (2) Peripheral Vascular Disease: Code(s): I73.9 - Peripheral vascular disease, unspecified Plan: Rule out ABRAM ordered Orders: Orders AMB Glucose Monitoring Today E10.9 - Type 1 diabetes mellitus without complications US ABRAM complete Today I73.9 - Peripheral vascular disease, unspecified AMB Hemoglobin A1c Today E10.9 - Type 1 diabetes mellitus without complications B Type Natriuretic Peptide Today E10.9 - Type 1 diabetes mellitus without complications Medications: New glucagon 3 mg/actuation (Baqsimi) may repeat in 15 min 3 mg intranasal ONCE 30 days PRN 2 ea 1RF unresponsive hypoglycemia acetone (urine) test (Ketone Urine Test strips) prn glucose over 250, illness, nausea, 25 ea 1RF insulin degludec (Tresiba FlexTouch U-100 insulin) 14 units (0.14 mL) subcut DAILY 30 days 4.2 mL 11RF E10.9 - Type 1 diabetes mellitus without complications Patient Instructions: Diabetic ketoacidosis (DKA) Is serious condition that can lead to diabetic coma (passing out for a long time) or even When your cells don't get the glucose they need for energy, your body begins to burn fat for energy, which produces ketones. Ketones are chemicals that the body creates when it breaks down fat to use for energy. The body does this when it doesn?t have enough insulin to use glucose, the body?s normal source of energy. When ketones build up in the blood, they make it more acidic. They are a warning sign that your diabetes is out of control or that you are getting sick. Symptoms of Diabetic Ketoacidosis (DKA) DKA usually develops slowly. But when vomiting occurs, this life-threatening condition can develop in a few hours. Early symptoms include the following: ? Thirst or a very dry mouth ? Frequent urination ? High blood glucose (blood sugar) levels ? High levels of ketones in the urine ? Then, other symptoms appear: ? Constantly feeling tired ? Dry or flushed skin ? Nausea, vomiting, or abdominal pain ? (Vomiting can be caused by many illnesses, not just ketoacidosis. If vomiting continues for more than 2 hours, contact your health care provider.) ? Difficulty breathing ? Fruity odor on breath ? A hard time paying attention, or confusion When should you test for ketones? It is advisable to check for ketones under the following conditions when: Your blood glucose is higher than 250mg/dl. Feeling nauseated, throwing up, or have pains in your abdominal region. Have a cold or flu. Have general body fatigue. Feel thirsty or have a very dry mouth. Have flushed skin. Have a fruity breath or a hard time breathing. You feel perplexed or in fog. How to Test Urine for Ketones You can detect ketones with a simple urine test using a test strip, similar to a blood testing strip. Ask your health care provider when and how you should test for ketones. Many experts advise to check your urine for ketones when your blood glucose is more than 250 mg/dl. When you are ill (when you have a cold or the flu, for example), check for ketones every 4 to 6 hours. And check every 4 to 6 hours when your blood sugar is more than 250 mg/dl. Also, check for ketones when you have any symptoms of DKA. How to lower your blood sugar level. ? Take medications as directed by physician. ? Drink extra water or noncaffeinated, nonsugared drinks to prevented hydration. ? Exercise if you are not sick However, if your blood sugar is above 250 mg/dl, check your urine for ketones. If you have ketones, do not exercise Exercising when ketones are present may make your blood sugar level go even higher. You'll need to work with your doctor to find the safest way for you to lower your blood sugar level. Wear closed toe shoes, never walk barefooted and inspect the feet daily. For any signs of infection or open wound patient you should notify your PCP or go to urgent care/ER. Sick day management was reviewed with patient Coding Level of Care Code Tele Est Pt Level 5 (49184) Diagnoses Type 1 diabetes mellitus without complication E10.9 Diabetes mellitus complication status: without complication Peripheral Vascular Disease I73.9 CPT Codes Details - CPT: 42247 - Glucose monitoring, continuous-physician I&R ([id number]) Time Spent (min) 46 Comment Time spent reviewing labs/provider notes, glucose,sensor reports, face to face, chart doc
[2024-09-08 08:55] VITALS: BP 138/76; PULSE 60; BMI 24.2
[2024-09-08 09:06] LABS: Glucose, Whole Blood 129 mg/dL (60-115)
== END 2024-09-08 09:31 | disposition home or self-care (01) ==
LOC: HO.ENCR 08:48
PROVIDERS: PCP Nurse Practitioner Family; Visit Provider Nurse Practitioner Adult Health
DX: I73.9 Peripheral vascular disease, unspecified (principal); E10.9 Type 1 diabetes mellitus without complications
CPT/HCPCS: 95251; 99215

== ENCOUNTER → 2024-09-08 08:48 | Outpatient (BNVA) | payer OTHER, SELFPAY | PROVIDERS: PCP Nurse Practitioner Family; Visit Provider Nurse Practitioner Adult Health | DX: E10.21 Type 1 diabetes mellitus with diabetic nephropathy (principal); I73.9 Peripheral vascular disease, unspecified | CPT/HCPCS: 82947; 83036 ==

== ENCOUNTER 2025-01-09 08:52 | Outpatient (AMB) | payer OTHER, SELFPAY ==
--- NOTE | 2025-01-09 07:11 | A.OFFVIS_ITS ---
Vital Signs 01/09/25 08:55 Height 6 ft Weight 180 lb 12.465 oz BMI 24.5 BP 146/50 H Blood Pressure Location Rt brachial Position Sitting Pulse 65 Pulse Source Pulse Oximeter Pulse Oximetry (%) 98 Oxygen Delivery Method Room Air Intake Visit Reasons: Type 1 dm Intake Note: Patient present today to follow up on Type 1 Diabetes Mellitus. Last Diabetic eye exam was on: 05/02/2024 Last Podiatry exam was on: Does not see a Aircraft Stress Analyst Most recent HbA1c: 6.9%, 01/09/2025 Random Glucose- 151 mg/dL, Today Water Softener Installer Required: No Accompanied by: Self / Same As Patient Allergies No Known Allergies Allergy (Verified 01/09/25 08:54) HPI Comments Details: Patient is 68 yo male with DM type 1 diagnosed at age 12, who presents for management of diabetes. He was last seen 09/08/74. a1c 01/09/25 6.9 %. Hgb A1C 09/08/24 %, 05/08/24 7%. He has been well controlled since 2021. LANTUS WAS CHANGED TO TRESIBA AT HIS LAST VISIT DUE TO OVERNIGHT LOWS. Past medical history: DM1, HTN, HLD Micro and macrovascular complications: none known Diabetes medications: Lantus 14 units Humalog 1-2 unit for his snacks. Breakfast 6 units Lunch 6 units Supper 8 units increase insulin 1-2 units for larger meals Correction factor for meals 1 unit for every 50 mg/dL over 150 up to a maximum of 5 units Dexcom average glucose: 144 14 day continuous glucose monitor report reviewed Glucose Managment indicator 6.7 % Days with CGM data 95 % TIme in ranges: 4 % very high (above 250) 18 % high ?(181-250) 73 % in range ?(70-180] 3 % low (69-55) 2 % ?very low (below 54) 37.6 Standard Deviation Interpretation [ some lows 3-6 a.m. 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 The liver contour is normal. Parenchymal echogenicity is normal. No focal hepatic lesion. There is no intrahepatic biliary duct dilatation seen [facility] Medical History T1DM (type 1 diabetes mellitus) Diabetes mellitus type 1, uncontrolled Essential hypertension Hyperlipidemia LDL goal <100 Surgical History History of carpal tunnel surgery of right wrist Family History Father No problems noted. Mother No problems noted. Social History Household Members: Spouse Housing: House Alcohol intake: never Patient Tobacco Use Status: Former Tobacco user e-Cigarette/Vaping Use: Never Used Second Hand Smoke Exposure: No Current occupational status: employed Current occupation: [employer] Current occupational exposures/hazards: No Cognitive needs: No Hearing needs: No Vision needs: No Physical Exam Vital Signs: Last Vital Signs Pulse 65 01/09/25 08:55 BP 146/50 H 01/09/25 08:55 Pulse Ox 98 01/09/25 08:55 Oxygen Delivery Method Room Air 01/09/25 08:55 BMI result Body Mass Index 24.5 Const Other: Absence of Cushingoid features. Absence of acromegalic features. Neck exam reveals nl size thyroid about 15 gms. No thyroid nodules palpable. Heart S1 S2, Reg R/R. No M/R G. Skin exam reveals absence of vitiligo or acanthosis nigricans. Visual exam of foot performed. No ulcerations or open lesions. No inter digit maceration or fissuring. + onychomycosis nails, slight elongated and thickened, no callouses. Sensation intact to monofilament exam. Vibratory sensation is normal with 128 Hz tuning fork. Office Procedures Glucose Monitoring Details Details: see [facility] [id number] - Glucose monitoring, continuous-physician I&R Procedure code (CPT) selection complete Results AMB Hemoglobin A1c AMB Hemoglobin A1c 6.9 % Last Edit by HITESH Reyes on 01/09/25 09:10 Results Reviewed Results Reviewed: Laboratory Last Values Glucose (Clinic) 151 mg/dL (60-115) H 01/09/25 09:02 Hgb A1c (Clinic) 6.9 % (4.0-6.0) H 01/09/25 09:08 Assessment & Plan Assessment & Plan (1) T1DM (type 1 diabetes mellitus): Code(s): E10.9 - Type 1 diabetes mellitus without complications Category: Medical Qualifiers: Diabetes mellitus complication status: without complication Qualified Code(s): E10.9 - Type 1 diabetes mellitus without complications Plan: 69-year-old male with nephropathy with a normal kidney function on basal bolus insulin with A1C of 6.9%. He is having some lows 3-6 a.m. and again slightly after supper. He was asked to use caution with any extra insulin dosing for meals that is supper and to reduce his insulin by 1 unit. We will try for prior authorization on Tresiba which this should smooth out those overnight lows as Lantus tends to exert it's greatest influcence overnight. Patient was also shown the CeQur 4 day insulin patch last visit which he may consider down the road. He is not interested in a pump. ABRAM ordered. HE declined at this time. He was advised to have fasting blood work and urine test as ordered by his PCP. He is up-to-date with immunizations with the exception of RSV which he declined secondary to cost. I recommended that he see a lead burner apprentice due to his nails being so thick and long. He declined but was advised to closely watch his feet and to make sure there were no ulcers or signs of infection. The patient had an opportunity to ask questions regarding treatment plan. The patient expressed understanding and agreement with the above treatment plan. The patient is aware they should contact our office by phone for worsening glucose readings or for any low blood sugars which may warrant a change in diabetes medication. Compliance is encouraged with medications and any followup testing/consults which may have been ordered. Orders: Orders AMB Hemoglobin A1c Today E10.9 - Type 1 diabetes mellitus without complications AMB Glucose Monitoring Today E10.9 - Type 1 diabetes mellitus without complications Medications: Changed From insulin degludec (Tresiba FlexTouch U-100 insulin) 14 units (0.14 mL) subcut DAILY 30 days 4.2 mL 11RF E10.9 - Type 1 diabetes mellitus without complications To insulin degludec (Tresiba FlexTouch U-100 insulin) 13 units (0.13 mL) subcut DAILY 90 days 12 mL 4RF E10.9 - Type 1 diabetes mellitus without complications Patient Instructions: Check your feet daily looking for any signs of infection, drainage, redness, ulceration and seek medical attention if this occurs. Break in shoes gradually and do not wear open-toed shoes or walk stocking footed or barefooted. The patient was counseled to achieve a target A1C of 7% (154 avg). Fasting blood sugars should be 90-130 in the morning and less than 180 two hours after meals. Reviewed the relationship between poor diabetic control and the development of complications. Sick day management Take 15 carb carbohydrate grams to treat a low sugar (3-4 glucose tablets, half a glass of juice or 15 carbohydrate grams of soft candy such as gummie snacks). Recheck your sugar in 15 minutes and re-treat again with 15 carbohydrate grams if low or still with symptoms. Do not drive a car or operate machinery if you do not know what your blood sugar is, if it is low or in excess of 300. Coding Level of Care Code Est Pt Level 4 (55016) Complex EM visit Add On G2211 Diagnoses Type 1 diabetes mellitus without complication E10.9 Diabetes mellitus complication status: without complication CPT Codes Details - CPT: 58800 - Glucose monitoring, continuous-physician I&R ([id number]) Time Spent (min) 30 Comment Time spent reviewing labs/provider notes, glucose,sensor reports, face to face, chart doc
[2025-01-09 08:55] VITALS: BP 146/50; PULSE 65; O2SAT 98; BMI 24.5
[2025-01-09 09:06] LABS: Glucose, Whole Blood 151 mg/dL (60-115)
== END 2025-01-09 09:19 | disposition home or self-care (01) ==
PROVIDERS: PCP Nurse Practitioner Family; Visit Provider Nurse Practitioner Adult Health
DX: E10.9 Type 1 diabetes mellitus without complications (principal)
CPT/HCPCS: 95251; 99214

== ENCOUNTER → 2025-01-09 08:52 | Outpatient (BNVA) | payer OTHER, SELFPAY | PROVIDERS: PCP Nurse Practitioner Family; Visit Provider Nurse Practitioner Adult Health | DX: E10.21 Type 1 diabetes mellitus with diabetic nephropathy (principal); Z79.4 Long term (current) use of insulin | CPT/HCPCS: 82947; 83036 ==

== ENCOUNTER 2025-02-22 08:14 | Outpatient (AMB) | payer OTHER, SELFPAY ==
--- NOTE | 2025-02-22 08:31 | A.OFFPC_ITS ---
Vital Signs 02/22/25 08:35 02/22/25 09:11 Height 6 ft Weight 182 lb BMI 24.7 BP 146/60 H 126/64 Blood Pressure Location Rt brachial Rt brachial Position Sitting Sitting Respiration 16 Pulse 69 Pulse Source Pulse Oximeter Temp 98.1 F Temp Source Oral Pulse Oximetry (%) 97 Oxygen Delivery Method Room Air Intake Visit Reasons: 6m F/U Intake Note: Pt is here today for his 6mo. f/u Allergies No Known Allergies Allergy (Verified 01/09/25 08:54) Medication List - Last Reconciled 02/22/25 by Parveen Hardin, JAVA TECHNICAL ARCHITECT- acetone (urine) test (Ketone Urine Test strips) prn glucose over 250, illness, nausea, blood-glucose meter (FreeStyle Lite Meter kit) As directed 4x/day blood-glucose sensor (Dexcom G6 Sensor device) As directed blood-glucose transmitter (Dexcom G6 Transmitter device) As directed blood-glucose,assembler leather goods,cont As directed cilostazol 100 mg PO BID 90 days ezetimibe 10 mg PO DAILY 30 days glucagon 3 mg/actuation (Baqsimi) 3 mg intranasal ONCE 30 days glucagon 3 mg/actuation (Baqsimi) 3 mg intranasal ONCE PRN 30 days insulin glargine (Lantus Solostar U-100 Insulin) 13 units (0.13 mL) subcut BEDTIME 90 days insulin lispro (Humalog KwikPen (U-100) Insulin) 1 sliding scale dose subcut USEASDIRECTD lisinopril 30 mg (1.5 x 20 mg) PO DAILY pen needle, diabetic (BD Naomi 2nd Gen Pen Needle) USE DIRECTED SEVEN TIMES PER DAY rosuvastatin 40 mg PO DAILY 30 days Tobacco use date assessed: 02/22/25 Fall risk assessment: No Falls in past year Last assessed Fall Risk: 02/22/25 Dental Screening Dental Screen Date: 02/22/25 Did you have a dental visit in the last 12 months?: Yes Did you have a dental problem in the last 6 months where you did not have access to dental care?: Yes Was dental information given to patient?: Patient has dentist HPI 6m F/U HPI Details Chief Complaint The patient presents for follow-up of hypertension and dyslipidemia. History of Present Illness The patient is a 69-year-old male presenting for follow-up of hypertension and dyslipidemia. His blood pressure has been stable under current management, and there have been no reports of concerning symptoms related to his hypertension. He has long-standing dyslipidemia, which is also being managed with medication. The patient denies any recent chest pain or shortness of breath, indicating stability in his cardiovascular status. A systolic murmur has been noted previously but without associated symptoms like chest discomfort. On a statin and ezetimibe. On physical examination, several dry macular lesions of varying pigmentation and size were noted on his scalp, with no associated symptoms such as itching. Given these findings, a referral to dermatology is planned for a comprehensive evaluation. Notably, the patient has a history of smoking one pack per day up to 13 years ago, which necessitates further attention to potential associated health risks. Social History - Previous smoking history: Smoked 1 pac k per day from age 18, quit 13 years ago. Health Maintenance - Referral to dermatology for evaluation of scalp lesions. - Recommendation for a low-dose computed tomography (CT) scan due to history of smoking. Review of Systems - Cardiovascular: Denies chest pain, den ies shortness of breath. -denies any fevers, chills, edema, blurr ed vision, CHAWLA, dizziness Physical Exam General: Cooperative, healthy appearing, comfortable, no acute distress and well developed Orientation: Patient oriented x3 Limitations: No limitations Head: Normal to inspection Ears: Hearing grossly normal bilaterally Nose: Normal external nose present Face and sinus: Normal facial exam Eyes: Appearance normal, both eyes and all related structures Neck: Normal visual inspection and Yes full ROM Respiratory: Normal respiratory effort and able to speak in complete sentences. Clear to auscultation bilaterally Cardiovascular: Regular rate and rhythm. Normal S1 and S2. Systolic murmur noted GI: Normal to inspection. Soft to palpation and nontender Skin: Several scalp lesions, almost macular dry appearing. Range in pigmentation and size Neuro: Patient oriented x3 Extremities: Normal to inspection Results Plan I will continue current management for hypertension and dyslipidemia, as the patient remains stable. The systolic murmur will be monitored for any future developments. For assessment of scalp lesions, a referral to dermatology is arranged for further evaluation. Considering the patient's history of smoking, a low-dose CT scan is recommended to screen for associated risks. These steps are important for comprehensive preventive care and management of potential complications. Discussion Notes I discussed with the patient the plan to continue his current treatments for hypertension and dyslipidemia, emphasizing stability in his condition. The significance and potential risks associated with the newly observed scalp lesions were explained, and I detailed the referral process to dermatology. Regarding his smoking history, I conveyed the necessity of a low-dose CT scan to check for any related health concerns and explained the procedure's purpose and potential outcomes. The patient agreed to proceed with all suggested actions, understanding the importance of these precautionary measures. Patient Instructions - Continue current medications for hyper tension and dyslipidemia. - Attend dermatology appointment as cailin greene for scalp lesion evaluation. - Prepare for the recommended low-dose C T scan for smoking history screening. - Return to the clinic if there are any new symptoms, such as chest pain or difficulty breathing. [facility] Medical History T1DM (type 1 diabetes mellitus) Diabetes mellitus type 1, uncontrolled Essential hypertension Hyperlipidemia LDL goal <100 Surgical History History of carpal tunnel surgery of right wrist Family History Father No problems noted. Mother No problems noted. Social History Household Members: Spouse Housing: House Alcohol intake: never Patient Tobacco Use Status: Former Tobacco user e-Cigarette/Vaping Use: Never Used Second Hand Smoke Exposure: No Current occupational status: employed Current occupation: [employer] Current occupational exposures/hazards: No Cognitive needs: No Hearing needs: No Vision needs: No Questionnaire PHQ-9 Over the last 2 weeks, how often have you been bothered by any of the following problems? 1. Little interest or pleasure in doing things: not at all 2. Feeling down, depressed, or hopeless: not at all 3. Trouble falling or staying asleep, or sleeping too much: not at all 4. Feeling tired or having little energy: not at all 5. Poor appetite or overeating: not at all 6. Feeling bad about yourself - or that you are a failure or have let yourself or your family down: not at all 7. Trouble concentrating on things, such as reading the newspaper or watching television: not at all 8. Moving or speaking so slowly that other people could have noticed. Or the opposite - being so fidgety or restless that you have been moving around a lot more than usual: not at all 9. Thoughts that you would be better off or of hurting yourself in some way: not at all Total score: 0 Source: Developed by Drs. Roland Navarrete, Gabby Combs, Jaylen Kay and colleagues, with an educational leila from [employer] Thrive Questionnaire Date Thrive assessed: 02/15/25 I am a: Patient What is your living situation today?: I have a steady place to live Within the past 12 months, did the food you bought not last and you didn't have the money to get more?: Never true Within the past 12 months, did you worry whether your food would run out before you got money to buy more?: Never true Do you have trouble paying for medicines?: No Do you have trouble getting transportation to medical appointments?: No Do you have trouble paying your heating and electricity bill?: No Do you have trouble taking care of your child, family member or friend?: No Do you have trouble with day-to-day activities such as bathing, preparing meals, shopping, managing finances, etc.?: No Are you currently unemployed and looking for a job?: No Are you interested in more education?: No Please select the resources that you would like help with: None Currently or been in a relationship where the following occur: No concerns reported THRIVE Score: 0 AUDIT C Alcohol Use Questionnaire (AUDIT-C) 1. How often do you have a drink containing alcohol?: Never Total Score: 0 JASON-7 AMB Questionnaire JASON-7 Date JASON - 7 assessed: 02/22/25 Feeling nervous, anxious, or on edge: 0 = Not at all Not being able to stop or control worryin = Not at all Worrying too much about different things: 0 = Not at all Trouble relaxin = Not at all Being so restless that it is hard to sit still: 0 = Not at all Becoming easily annoyed or irritable: 1 = Several days Feeling afraid as if something awful might happen: 0 = Not at all Total JASON-7 score (0-4 normal; 5-9 mild; 10-14 moderate; 15-21 severe): 1 Source: Developed by Drs. Roland Navarrete, Gabby Combs, Jaylen Kay and colleagues, with an educational leila from [employer] Physical exam (Primary Care) Vital Signs: Last Vital Signs Temp 98.1 F 02/22/25 08:35 Pulse 69 02/22/25 08:35 Resp 16 02/22/25 08:35 BP 126/64 02/22/25 09:11 Pulse Ox 97 02/22/25 08:35 Oxygen Delivery Method Room Air 02/22/25 08:35 BMI result Body Mass Index 24.7 Tobacco/Smoking Status: Tobacco use Status Tobacco use date assessed 02/22/25 02/22/25 08:38 Patient Tobacco Use Status Former Tobacco user 02/22/25 08:33 e-Cigarette/Vaping Use Never Used 02/22/25 08:33 PHQ-9: PHQ-9 Score PHQ-9: Total score 0 02/22/25 09:14 Thrive Assessment: Date of Thrive Assessment Date Thrive assessed 02/15/25 02/22/25 08:33 Currently or been in a relationship where the following occur: No concerns reported Coding Level of Care Code Est Pt Level 3 (23259) Diagnoses Systolic murmur R01.1 Smoker F17.200 Skin lesion L98.9 Assessment & Plan Assessment & Plan (1) Systolic murmur: Code(s): R01.1 - Cardiac murmur, unspecified Category: Medical (2) Smoker: Code(s): F17.200 - Nicotine dependence, unspecified, uncomplicated Category: Social Hx (3) Skin lesion: Code(s): L98.9 - Disorder of the skin and subcutaneous tissue, unspecified Category: Medical Plan . Orders: Orders CA echo transthoracic complete Today R01.1 - Cardiac murmur, unspecified Referrals Lung Cancer Screening Referral F17.200 - Nicotine dependence, unspecified, uncomplicated Dermatology Referral L98.9 - Disorder of the skin and subcutaneous tissue, unspecified
[2025-02-22 08:35] VITALS: BP 146/60; PULSE 69; RESP 16; TEMP 36.7; O2SAT 97; BMI 24.7
[2025-02-22 09:11] VITALS: BP 126/64
== END 2025-02-22 09:18 | disposition home or self-care (01) ==
LOC: HO.HMCC 08:15
PROVIDERS: PCP Nurse Practitioner Family; Visit Provider Nurse Practitioner Family
DX: R01.1 Cardiac murmur, unspecified (principal); F17.200 Nicotine dependence, unspecified, uncomplicated; L98.9 Disorder of the skin and subcutaneous tissue, unspecified

== ENCOUNTER → 2025-02-22 08:14 | Outpatient (BNVA) | payer OTHER, SELFPAY | PROVIDERS: PCP Nurse Practitioner Family; Visit Provider Nurse Practitioner Family ==

== ENCOUNTER 2025-02-28 17:38 | Emergency (ER) | payer OTHER, SELFPAY ==
--- NOTE | ~2025-02-28 | XR_ITS ---
CLINICAL HISTORY: partial finger amputation 3 view right hand Comparison: None Findings: Blunting of the soft tissues in the distal 3rd digit consistent with the provided history of partial amputation. No foreign body or fracture. IMPRESSION: 1. Distal 3rd digit soft tissue injury with no fracture or foreign body. This document has been electronically signed by: Kennedy Cobb MD on 02/28/2025 19:11:48
[2025-02-28 17:43] VITALS: BP 176/64; PULSE 78; RESP 18; TEMP 37.2; O2SAT 95; BMI 24.8
--- NOTE | 2025-02-28 17:44 | ED.UPPEXIN ---
HPI - Extremity Injury (Upper) General Chief Complaint: Wound/Laceration Stated Complaint: sent from , finger laceration Source: patient Mode of arrival: ambulatory Limitations: no limitations History of Present Illness ED Provider: Dr. Nenita Schreiber HPI narrative: Patient comes to the emergency room complaining of a laceration to the middle finger of the right hand. According to the patient, his right hand got accidentally crushed with a crank on a boat. Patient initially went to urgent Care, he was referred to the emergency room as he was told that he may need an amputation. 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,nutrition club ambassador,cont 09/18/22 02/22/25 Previous Rx's ?Medication ?Instructions ?Recorded glucagon 3 mg/actuation nasal 3 mg intranasal ONCE 30 days #2 ea 09/05/20 spray (Baqsimi) blood-glucose meter (FreeStyle #1 ea 10/09/21 Lite Meter kit) pen needle, diabetic 32 gauge x #600 ea 11/03/23 (BD Naomi 2nd Gen Pen Needle) cilostazol 100 mg tablet 100 mg PO BID 90 days #180 tabs 06/26/24 insulin lispro 100 unit/mL 1 sliding scale dose subcut 07/11/24 subcutaneous pen (Humalog KwikPen USEASDIRECTD #36 mL (U-100) Insulin) acetone (urine) test (Ketone Urine #25 ea 09/08/24 Test strips) glucagon 3 mg/actuation nasal 3 mg intranasal ONCE PRN 09/08/24 spray (Baqsimi) unresponsive hypoglycemia 30 days #2 ea ezetimibe 10 mg tablet 10 mg PO DAILY 30 days #30 tabs 12/07/24 rosuvastatin 40 mg tablet 40 mg PO DAILY 30 days #30 tabs 12/12/24 lisinopril 20 mg tablet 30 mg (1.5 x 20 mg) PO DAILY #135 12/21/24 tabs insulin glargine 100 unit/mL (3 13 unit (0.13 mL) subcut BEDTIME 01/09/25 mL) subcutaneous pen (Lantus 90 days #12 mL Solostar U-100 Insulin) cephalexin 500 mg capsule 500 mg PO BID #14 caps 02/28/25 doxycycline hyclate 100 mg capsule 100 mg PO BID #14 caps 02/28/25 Allergies Allergy/AdvReac Type Severity Reaction Status Date / Time No Known Allergies Allergy Verified 02/28/25 17:45 Review of Systems Review of Systems: Constitutional : No Weight loss, No Fever, No Chills, No Night Sweats, No Fatigue, No Malaise ENT/Mouth : No Hearing loss, No Ear Pain, No Nasal Congestion, No Sinus Pain, No Hoarseness, No sore throat, No Rhinorrhea, No Swallowing Difficulty Eyes: No Eye Pain, No Swelling, No Redness, No Foreign Body, No Discharge, No Vision Changes Cardiovascular : No Chest Pain, No SOB, No Dyspnea on Exertion, No Orthopnea, No Edema, No Palpitations Respiratory : No Cough, No Sputum, No Wheezing, No Smoke Exposure, No Dyspnea Gastrointestinal : No Nausea, No Vomiting, No Diarrhea, No Constipation, No abdominal Pain, No Hematochezia, No Melena Genitourinary : no irregular bleeding, No Dysuria, No Urinary Frequency, No Hematuria, No Urinary Incontinence, No Urgency, No Flank Pain, No Urinary Flow Changes, No Hesitancy Musculoskeletal : No joint pain, No Myalgias, No Joint Swelling Skin : Complaining of a laceration to the right middle finger palmar aspect, crush injury Neuro : No Weakness, No Numbness, No Paresthesias, No Loss of Consciousness, No Dizziness, No Headache Psych : No Anxiety/Panic, No Depression, No SI/HI/AH/VH, No Social Issues, Heme/Lymph: No Bruising, No Bleeding,No Lymphadenopathy Endocrine : No Polyuria, No Polydipsia, No Temperature Intolerance [facility] Past Medical History Medical History T1DM (type 1 diabetes mellitus) Diabetes mellitus type 1, uncontrolled Essential hypertension Hyperlipidemia LDL goal <100 Surgical History History of carpal tunnel surgery of right wrist Family History Family History Father No problems noted. Mother No problems noted. Social History Social History Household Members: Spouse Housing: House Alcohol intake: never Patient Tobacco Use Status: Former Tobacco user Smoked in Last 30 Days: No e-Cigarette/Vaping Use: Never Used Second Hand Smoke Exposure: No Use of substances other than those prescribed or required for medical reasons: No Advance Directives: No Advance Directives Information Provided: No Current occupational status: employed Current occupation: [employer] Current occupational exposures/hazards: No Cognitive needs: No Hearing needs: No Vision needs: No Physical Exam Vital Signs: Vital Signs: Last Vital Signs Temp 98.9 F 02/28/25 17:43 Pulse 78 02/28/25 17:43 Resp 18 02/28/25 17:43 BP 176/64 H 02/28/25 17:43 Pulse Ox 95 02/28/25 17:43 O2 Del Method Room Air 02/28/25 17:43 BMI result Body Mass Index 24.8 Const: Other: Appearance: Alert. Oriented X3. No acute distress. Eyes: Pupils equal, round and reactive to light. ENT: Pharynx normal. Neck: Normal inspection. Neck supple. No lymph nodes noted. No crepitus CVS: Normal heart rate and rhythm. Pulses normal. Normal S1 and S2 Respiratory: No respiratory distress. Breath sounds normal. No Wheezing. No rales Abdomen: Soft and nontender. No rigidity. No distention. Skin: Skin warm and dry. See extremities below Extremities: No lower extremity edema. No Lacerations. No Rash. Patient's right hand palmar aspect of middle finger, from the fingertip down to the 1st DIP on the palmar aspect, the tissue is nearly avulsed, it is barely attached by a very small piece of tissue to the rest of the finger. Patient is able to flex and extend all fingers with normal range of motion including the middle finger, no tendons were visualized Neuro: Oriented X 3. No motor deficit. No sensory deficit. Moving all extremities. No slurred speech. CN 2 through 12 grossly intact Psych: calm, cooperative, normal affect Course Course Course Narrative: This is a Rapid Medical Exam performed in triage by Laxmi Farmer PA-C. Full HPI, ROS and PE to be performed by primary ED provider. 69 yo M w/PMHx AAA, DM, HTN, HLD presenting to the ED c/o partial finger R middle finger amputation s/p getting finger caught in boat crank while launching boat around 1545. Tetanus unknown. PE: finger wrapped in triage, will go straight back to main ED Plan: XR, Tdap, Repair Medications Administered Discontinued Medications Generic Name Dose Route Start Last Admin Trade Name Freq PRN Reason Stop Dose Admin Diphtheria/Tetanus/Acell Pertussis 0.5 ml 02/28/25 17:46 02/28/25 18:42 Diphth,Pertus(Acell),Tet Adult 0.5 Ml Syringe IM 02/28/25 17:47 0.5 ml .ONCE ONE Administration Medical Decision Making Medical Decision Making MDM Narrative: I discussed with the patient that there is a high chance that the tissue that is a balls main reattached, may become necrotic and fall off. I tried my best to attach the avulsed tissue to the finger, hoping that it may get revascularized Patient received over 20 stitches. Patient was given p.o. antibiotics in the emergency room. Also he was given a dose of Tdap. I spent over 60 minutes with the patient applying stitches and trying to save the tissue of the middle finger Independent Interpretation I performed an independent interpretation of an: Plain X-Ray Radiology Impression Discussion of test interpretation with radiology: I have reviewed the radiologist's reading. Radiologist Impression: Findings: Blunting of the soft tissues in the distal 3rd digit consistent with the provided history of partial amputation. No foreign body or fracture. IMPRESSION: 1. Distal 3rd digit soft tissue injury with no fracture or foreign body. Procedures Laceration Laceration 1: Site: hand Side (If applicable): right Size (cm): 4 Description: flap and irregular Depth: simple, single layer and involves muscle layer Local Anesthetic: lidocaine 1% Amount of anesthesia used (mL): 20 Pre-repair: wound explored, irrigated extensively and deep structures intact Skin layer closed with: nylon Size (cm): 4-0 and 5-0 Number of sutures: 21 Technique: simple, interrupted Critical Care Time Critical Care Time Critical Care Time: Yes Total Critical Care Time: 60 Attestation: I have personally provided critical care time. Time includes review of lab data, radiology results, discussion with consultants, and monitoring for potential decompensation. Intervention performed as documented. Discharge Plan Discharge Clinical Impression: Laceration of finger, Avulsion of skin Patient Disposition: Home, Self-Care Instructions: Care For Your Stitches (ED) Additional Instructions: Please follow-up with your primary care physician tomorrow. If you have any worsening or new symptoms, please return to the emergency room or call 911 Prescriptions: New doxycycline hyclate 100 mg capsule 100 mg PO BID Qty: 14 0RF cephalexin 500 mg capsule 500 mg PO BID Qty: 14 0RF No Action (DME) blood-glucose meter [FreeStyle Lite Meter] Kit See Rx Instructions .ROUTE .MEDSUPPLY Qty: 1 0RF Rx Instructions: As directed 4x/day (DME) pen needle, diabetic [BD Naomi 2nd Gen Pen Needle] 32 gauge x 5/32 needle See Rx Instructions .ROUTE .COMPLEX Qty: 600 1RF Dose Instruction: USE DIRECTED SEVEN TIMES PER DAY Rx Instructions: USE DIRECTED SEVEN TIMES PER DAY cilostazol 100 mg tablet 100 mg PO BID 90 Days Qty: 180 1RF insulin lispro [Humalog KwikPen Insulin] 100 unit/mL insulin pen 1 sliding scale dose subcut USEASDIRECTD Qty: 36 2RF Rx Instructions: 6 units breakfast, lunch 8 units for dinner and 1 unit for bg over 150mg/dl and every 50mg/dl with a max a 5 extra units, 1-2 units with snack subcut up to 6 times a day; up to 25 units today ezetimibe 10 mg tablet 10 mg PO DAILY 30 Days Qty: 30 11RF rosuvastatin 40 mg tablet 40 mg PO DAILY 30 Days Qty: 30 6RF lisinopril 20 mg tablet 30 mg PO DAILY Qty: 135 1RF insulin glargine [Lantus Solostar U-100 Insulin] 100 unit/mL (3 mL) insulin pen 13 unit subcut BEDTIME 90 Days Qty: 12 1RF Baqsimi 3 mg/actuation spray,non-aerosol 3 mg intranasal ONCE 30 Days Qty: 2 3RF (DME) Dexcom G6 Transmitter Device See Rx Instructions .Route Rx Instructions: As directed (DME) Dexcom G6 Sensor Device See Rx Instructions .Route Rx Instructions: As directed (DME) blood-glucose,nutrition club ambassador,cont Misc See Rx Instructions .Route Rx Instructions: As directed (DME) Ketone Urine Test Strip See Rx Instructions .ROUTE .MEDSUPPLY Qty: 25 1RF Rx Instructions: prn glucose over 250, illness, nausea, Baqsimi 3 mg/actuation spray,non-aerosol 3 mg intranasal ONCE PRN (Reason: unresponsive hypoglycemia ) 30 Days Qty: 2 1RF Rx Instructions: may repeat in 15 min Print Language: Ukrainian
[2025-02-28] MEDS: Diphth,Pertus(ACell),Tet Adult 0.5 ML SYRINGE IM (18:42)
[2025-02-28] MEDS: Doxycycline Monohydrate 100 MG CAPSULE PO (20:45)
[2025-02-28] MEDS: cephALEXin 500 MG CAPSULE PO (20:45)
[2025-02-28 20:46] VITALS: BP 151/57; PULSE 63; RESP 20; TEMP 37.1; O2SAT 94
--- NOTE | 2025-02-28 20:54 | PC.NURSE ---
Right middle finger wound sutured by physician. Applied non adherent gauze, gauze and wrapped. Pt tolerated without issue.
== END 2025-02-28 20:55 | disposition home or self-care (01) ==
PROVIDERS: Emergency Provider Emergency Medicine; PCP Nurse Practitioner Family
DX: S61.302A Unspecified open wound of right middle finger with damage to nail, initial encounter (principal); W23.0XXA Caught, crushed, jammed, or pinched between moving objects, initial encounter; Y93.9 Activity, unspecified; Y92.9 Unspecified place or not applicable; Y99.9 Unspecified external cause status; Z23 Encounter for immunization; E10.9 Type 1 diabetes mellitus without complications; I10 Essential (primary) hypertension
CPT/HCPCS: 12002; 73130; 90471; 90715; 99284

== ENCOUNTER → 2025-02-28 17:46 | Outpatient (BNV) | payer OTHER, SELFPAY | PROVIDERS: Emergency Provider Emergency Medicine; PCP Nurse Practitioner Family; Visit Provider Radiology Diagnostic Radiology | DX: S68.622A Partial traumatic transphalangeal amputation of right middle finger, initial encounter (principal) | CPT/HCPCS: 73130 ==

== ENCOUNTER → 2025-03-26 07:47 | Outpatient (REF) | payer OTHER, SELFPAY ==
--- NOTE | 2025-03-26 07:50 | CA_ITS ---
Transthoracic Echocardiogram Patient (Last, First, Middle): Vinnie Andres E Gender: Male Date of : 1955 Age: 69 Procedure Date: 03/26/2025 Procedure Type: Transthoracic Echocardiogram Location: OP Height: 182. cm Weight: 82.1 kg BSA: 2.03 m2 Heart Rate: 56 bpm BP: 145 / 60 mmHg Insurance Verification Specialist: MARIBEL Referring MD: Parveen Hardin [facility] Symptoms: R01.1 - Cardiac murmur, unspecified Study Quality: Adequate ECG Rhythm: Sinus Conclusions: - The left ventricular systolic function is normal. The calculated ejection fraction is 69% by biplane method. - The basal inferior segment is hypokinetic. - There is moderate calcification of the aortic valve. - There is mild mitral annular calcification. Findings Left Ventricle Normal left ventricular cavity size. There is normal left ventricular wall thickness. The left ventricular systolic function is normal. The calculated ejection fraction is 69% by biplane method. There is no evidence of regional wall motion abnormalities. Diastolic function is normal for age. Wall Motion Rest Echo Findings The basal inferior segment is hypokinetic. Right Ventricle Mildly increased right ventricular cavity size. There is normal right ventricular systolic function. Atria Both atria are normal in size. Aortic Valve There is moderate calcification of the aortic valve. There is no aortic valve stenosis. There is no aortic valve regurgitation. Mitral Valve There is mild anterior mitral leaflet thickening. There is mild mitral annular calcification. There is no mitral valve regurgitation. There is no mitral valve stenosis. Pulmonic Valve The pulmonic valve is likely normal. Tricuspid Valve There is trace tricuspid valve regurgitation. There is no evidence of pulmonary hypertension. Great Vessels The asc aorta is normal in size. Venous The inferior vena cava is normal in size and collapses greater than 50% with inspiration. Pericardium/Pleural There is no evidence of pericardial effusion. Prior Study Comparison Changes noted compared to prior study dated: 07/01/2022. see comment on wall motion. Measurements 2D Linear Measurements IVSd: 1.01 0.6-0.9/0.6-1.0 cm LVIDd: 5.14 3.9-5.3/4.2-5.9 cm LVIDd Index: 2.53 2.4-3.2/2.2-3.1 cm/m2 LVIDs: 2.80 2.0-3.6 cm LVPWd: 1.09 0.7-1.1 cm LA Diam: 3.60 2.7-3.8/3.0-4.0 cm LAIDs Index: 1.77 1.5-2.3 cm/m2 LV Mass: 253.45 67-162/88-224 g LV Mass Index: 124.85 43-95/49-115 g/m2 LVOT Diam: 2.10 3.0+(-)1.3 cm 2D Systolic Function EF 4C: 70.30 >55% EF 2C: 67.20 >55% EF BiP: 69.20 >55% Mitral Valve MV Pk E: 1.27 MV PK A: 1.08 MV Decel Time: 172.00 E/A: 1.20 E'Lateral: 9.79 E'Medial: 8.27 E/E' Med: 15.40 E/E' Lat: 13.00 PHT: 50.00 MVA PHT: 4.40 Decel [place]: 7.41 Aortic Valve AoV Pk John: 1.82 AoV Mn Jonh: 1.34 AoV VTI: 0.49 AoV Pk Grad: 13.00 Aov Mn Grad: 8.00 AMELIA Cont.VTI: 2.41 LVOT LVOT Pk John: 1.19 LVOT Mn John: 0.93 LVOT VTI: 0.34 LVOT Pk Grad: 6.00 LVOT Mn Grad: 4.00 LVOT Diam: 2.10 LVOT Area: 3.46 Diastolic Function MV Pk E: 1.27 MV Pk A: 1.08 E/A: 1.20 E'Medial: 8.27 E/E' Med: 15.40 E' Laterial: 9.79 E/E' Lat: 13.00 Right Ventricle TAPSE (mm): 32.60 TVS' John: 15.00 Tricuspid Valve TR Pk John: 1.40 TR Pk Grad: 8.00 RA Press: 3.00 RVSP: 11.00 Great Vessels Aorta Sinus of Valsalva: 3.50 2.0-3.5 cm Ao Asc: 3.40 2.1-3.4 cm Pulmonary Valve PV Pk John: 1.00 Peak PV Grad: 4.00 Updated in Other Vendor System with Status of Final Justino Ang MD electronically signed on 03/26/2025 10:02:53 AM with status of Final
== END ==
LOC: HO.CARD 07:47
PROVIDERS: PCP Nurse Practitioner Family; Visit Provider Nurse Practitioner Family
DX: R01.1 Cardiac murmur, unspecified (principal)
CPT/HCPCS: 93306

== ENCOUNTER → 2025-03-26 07:50 | Outpatient (BNV) | payer OTHER, SELFPAY | PROVIDERS: PCP Nurse Practitioner Family; Visit Provider Internal Medicine | DX: I35.0 Nonrheumatic aortic (valve) stenosis (principal); I34.81 Nonrheumatic mitral (valve) annulus calcification | CPT/HCPCS: 93306 ==

== ENCOUNTER 2025-04-05 10:43 | Emergency (ER) | payer OTHER, SELFPAY ==
--- NOTE | ~2025-04-05 | XR_ITS ---
EXAMINATION: XR WRIST 3 OR MORE VIEWS LEFT HISTORY: post reduction films COMPARISON: Comparison is made with the prior examination performed earlier in the day. FINDINGS: Three casted views of the left wrist are submitted. The fiberglass cast obscures fine bony detail. Again seen is a comminuted intra-articular fracture of the distal radius. Alignment is unchanged. There is an associated ulnar styloid fracture. There are vascular calcifications. XR/XR wrist LT min 3V IMPRESSION: Comminuted intra-articular fracture of the distal radius with an associated ulnar styloid fracture, without change. Electronically signed by: Roland Benitez MD 04/05/2025 01:45 PM EDT
--- NOTE | ~2025-04-05 | XR_ITS ---
EXAMINATION: XR LUMBOSACRAL SPINE CLINICAL INFORMATION: fall from 8 ft height COMPARISON: None available. TECHNIQUE: Three views of the lumbosacral spine. FINDINGS: No scoliosis. Mild straightening of the normal lordosis. No subluxations. No fractures, compression deformities, or suspicious bone lesions. Facets are normally aligned. There are multilevel mild degenerative facet changes. There is mild to moderate degenerative disc change at L1-2, L3-4 and L5-S1. The sacrum is intact. SI joints demonstrate mild degenerative arthritis. Soft tissues demonstrate vascular calcifications. XR/XR lumbar spine 2-3V IMPRESSION: No acute bony abnormalities of the lumbar spine. Mild to moderate spondylosis. Electronically signed by: Aaron Gregg MD 04/05/2025 12:23 PM EDT
--- NOTE | ~2025-04-05 | CT_ITS ---
EXAMINATION: CT CERVICAL SPINE WITHOUT CONTRAST CLINICAL INFORMATION: Fall from a foot height, neck pain. COMPARISON: None available. TECHNIQUE: Spiral CT imaging of the cervical spine performed in axial plane without contrast. Multiplanar reformatted images were constructed from the axial data set. This CT examination was performed using dose optimization techniques as appropriate, variously including the following: *Automated exposure control *Adjustment of mA and/or kV according to patient size (this includes techniques or standardized protocols for targeted exams where dose is matched to indication/reason for exam; i.e. extremities or head) *Use of iterative reconstruction technique FINDINGS: CORONAL ALIGNMENT: -Normal. SAGITTAL ALIGNMENT: -Normal. C1-C2 AND CRANIOCERVICAL JUNCTION: -Intact and aligned. 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 VERTEBRAL BODIES AND FACETS: -No fracture, compression deformity, or suspicious bone lesion. No traumatic subluxation. -Normal facet alignment with mild multilevel degenerative facet changes bilaterally. DISCS: -Moderate disc degeneration C5-6, C6-7, and C7-T1. CENTRAL CANAL: -No evidence of high-grade central canal narrowing or large disc herniation allowing for modality limitations. PREVERTEBRAL AND PARAVERTEBRAL SOFT TISSUES: -No prevertebral or paravertebral soft tissue swelling. No abnormal fluid collection. -Moderate bilateral carotid bulb calcification right greater than left. -Normal thyroid. LUNG APICES: -Clear bilaterally. No pneumothorax. CT/CT cervical spine wo IV con IMPRESSION: 1. No CT evidence of acute cervical spine fracture or injury. Mild to moderate degenerative spondylosis. Electronically signed by: Aaron Gregg MD 04/05/2025 12:48 PM EDT
--- NOTE | ~2025-04-05 | CT_ITS ---
EXAMINATION: CT HEAD WITHOUT CONTRAST CLINICAL INFORMATION: Fall from 8 feet high. Head injury. COMPARISON: None available. TECHNIQUE: Contiguous axial imaging was performed from the skull base to vertex without intravenous administration of contrast. This CT examination was performed using dose optimization techniques as appropriate, variously including the following: *Automated exposure control *Adjustment of mA and/or kV according to patient size (this includes techniques or standardized protocols for targeted exams where dose is matched to indication/reason for exam; i.e. extremities or head) *Use of iterative reconstruction technique FINDINGS: There is no evidence of intracranial hemorrhage or extra-axial fluid collection. There is no mass effect, or edema. No CT evidence of acute territorial infarct. Ventricles, sulci, and cisterns are normal in size and configuration for patient age. No hydrocephalus. No midline shift. Negative hyperdense MCA sign. Negative insular ribbon sign. Patchy periventricular and deep white matter hypoattenuation is consistent with mild small vessel ischemic changes. Normal pituitary. Globes and orbital contents image normally. No extracranial soft tissue abnormalities. Mild to moderate mucosal thickening right maxillary sinus. The paranasal sinuses, mastoid air cells, and tympanic cavities are otherwise normally aerated. No suspicious bony abnormalities. There are no acute fractures evident. CT/CT head/brain wo IV con IMPRESSION: No acute intracranial abnormality. No fracture evident. Electronically signed by: Aaron Gregg MD 04/05/2025 12:43 PM EDT
--- NOTE | ~2025-04-05 | XR_ITS ---
EXAMINATION: XR TIBIA AND FIBULA, GER 2V CLINICAL INFORMATION: fall from 8 ft height r/o fracture COMPARISON: None available. TECHNIQUE: AP and lateral views of the bilateral tibia and fibula were obtained. FINDINGS: RIGHT TIBIA/FIBULA: No fracture or dislocation. No bone lesion. Mild chondrocalcinosis of the knee. Vascular calcifications in the soft tissues. LEFT TIBIA/FIBULA: No fracture or dislocation. No bone lesion. Mild chondrocalcinosis of the knee. Vascular calcifications in the soft tissues. XR/XR Tibia Fibula Ger 2V IMPRESSION: No acute findings of the bilateral tibia and fibula. Electronically signed by: Aaron Gregg MD 04/05/2025 12:27 PM EDT
--- NOTE | ~2025-04-05 | XR_ITS ---
EXAMINATION: XR HAND, LEFT CLINICAL INFORMATION: fall, pain COMPARISON: None available. TECHNIQUE: PA, lateral, and oblique views of the left hand. FINDINGS: Comminuted and intra-articular distal radial fracture present, with minimal impaction, mild dorsal angulation, and mild displacement. Ulnar styloid avulsion fracture. Carpal bones appear intact. No additional fractures. Soft tissue swelling about the wrist. There is vascular calcification. XR/XR hand LT 2V IMPRESSION: 1. Comminuted, intra-articular mildly dorsally angulated and mildly displaced distal radial fracture. 2. Ulnar styloid avulsion fracture. 3. Soft tissue swelling. Electronically signed by: Aaron Gregg MD 04/05/2025 11:27 AM EDT
[2025-04-05 11:00] VITALS: BP 146/54; PULSE 75; RESP 16; TEMP 35.9; O2SAT 99; BMI 24.8
--- NOTE | 2025-04-05 11:06 | ED_ITS ---
HPI - Fall General Chief Complaint: Fall Stated Complaint: l wrist inj at work Time Seen by Provider: 04/05/25 11:11 Source: patient Mode of arrival: ambulatory Limitations: no limitations History of Present Illness ED Provider: AYDEE MACIEL PA-C HPI Narrative: 69-year-old male with pmhx significant for AAA, type 1 diabetes, HTN, claudication presents to the ED today with left wrist/hand pain status post mechanical fall off ladder from approximately 6-8 ft height prior to arrival. Patient states he was a few steps down from the top of his ladder, clearing off debris when the debris fell back onto him knocking him off the ladder. Reports landing on bilateral feet and falling to the left side, falling onto left outstretched hand. Reports immediate pain to left wrist. Denies head strike or LOC. Not on anticoagulation. He was able to drive himself to the ED today. At present, reports pain to left wrist, rated 5/10. 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 Denies numbness/tingling / weakness of the left upper extremity. Denies foot/ ankle pain, knee pain, back pain, neck pain, chest or abdominal pain, headache or vision changes. 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 09/18/22 02/22/25 Previous Rx's ?Medication ?Instructions ?Recorded glucagon 3 mg/actuation nasal 3 mg intranasal ONCE 30 days #2 ea 09/05/20 spray (Baqsimi) blood-glucose meter (FreeStyle #1 ea 10/09/21 Lite Meter kit) cilostazol 100 mg tablet 100 mg PO BID 90 days #180 tabs 06/26/24 insulin lispro 100 unit/mL 1 sliding scale dose subcut 07/11/24 subcutaneous pen (Humalog KwikPen USEASDIRECTD #36 mL (U-100) Insulin) acetone (urine) test (Ketone Urine #25 ea 09/08/24 Test strips) glucagon 3 mg/actuation nasal 3 mg intranasal ONCE PRN 09/08/24 spray (Baqsimi) unresponsive hypoglycemia 30 days #2 ea ezetimibe 10 mg tablet 10 mg PO DAILY 30 days #30 tabs 12/07/24 rosuvastatin 40 mg tablet 40 mg PO DAILY 30 days #30 tabs 12/12/24 lisinopril 20 mg tablet 30 mg (1.5 x 20 mg) PO DAILY #135 12/21/24 tabs insulin glargine 100 unit/mL (3 13 unit (0.13 mL) subcut BEDTIME 01/09/25 mL) subcutaneous pen (Lantus days #12 mL Solostar U-100 Insulin) cephalexin 500 mg capsule 500 mg PO BID #14 caps 02/28/25 doxycycline hyclate 100 mg capsule 100 mg PO BID #14 caps 02/28/25 pen needle, diabetic 32 gauge x #600 ea 04/03/25 morphine 15 mg immediate release 15 mg PO Q8H PRN pain (scale score 04/05/25 tablet 7-10) 3 days #9 tabs Allergies Allergy/AdvReac Type Severity Reaction Status Date / Time No Known Allergies Allergy Verified 04/05/25 11:01 Review of Systems Review of Systems: Yes all other systems are reviewed and are negative [facility] Past Medical History Attestation statement: The following information was validated with the patient. Source: old records reviewed and nursing notes reviewed Medical History Nicotine dependence, cigarettes, uncomplicated T1DM (type 1 diabetes mellitus) Essential hypertension Hyperlipidemia LDL goal <100 Surgical History History of carpal tunnel surgery of left wrist History of carpal tunnel surgery of right wrist Family History Family History Father No problems noted. Mother No problems noted. Social History Social History Household Members: Spouse Housing: House Alcohol intake: never Patient Tobacco Use Status: Former Tobacco user Smoked in Last 30 Days: No e-Cigarette/Vaping Use: Never Used Second Hand Smoke Exposure: No Use of substances other than those prescribed or required for medical reasons: Yes Substance Use Type: Marijuana Substance Use Frequency: Socially Advance Directives: No Advance Directives Information Provided: Yes Do you have a plan to hurt others: No Plan Current occupational status: employed Current occupation: [employer] Current occupational exposures/hazards: No Cognitive needs: No Hearing needs: No Vision needs: No Physical Exam Vital Signs: Vital Signs: Last Vital Signs Temp 98.1 F 04/05/25 14:23 Pulse 59 04/05/25 14:23 Resp 16 04/05/25 14:23 BP 148/58 H 04/05/25 14:23 Pulse Ox 97 04/05/25 14:23 O2 Del Method Room Air 04/05/25 14:23 BMI result Body Mass Index 24.8 hypertensive General: Well appearing, in no acute distress. Skin: Warm, dry, intact. No rashes or lesions. Head: Normocephalic, atraumatic. EENT: Hearing is intact b/l. Conjunctiva clear. PERRLA. EOM intact. Moist mucous membranes.? Neck: no midline cervical spinous tenderness or step off deformity. FROM intact to c spine Cardiac: Chest wall symmetric. RRR Lungs: Normal respiratory effort without accessory muscle use. CTA bilaterally. Abdomen: Soft, non-tender, non-distended. No rebound tenderness or guarding. Positive BS x4. Back: No midline spinous or paraspinal tenderness. No step off deformity. Ext: +deformity to L wrist with overlying swelling. no open wounds. Radial pulse intact. ROM intact to flexion and extension of left wrist with pain. Able to move all digits. Cap refill less than 2 seconds. Sensation intact distally. Neuro: AOx3. Normal speech. exam nonfocal. Strength 5/5 intact throughout. No saddle anesthesia. Sensation intact to light touch. NV intact distally. Ambulating with steady gait. Course Course Course Narrative: X-ray lumbar spine without fracture, [id number] spondylosis. Bilateral tib-fib x-rays without tibial plateau fracture. CT cervical spine without fracture. CT head without bleed. Patient has comminuted intra-articular mildly dorsally angulated and mildly displaced distal radial fracture and ulnar styloid avulsion fracture with associated soft tissue swelling. Attempted joint reduction after hematoma block. JAMI Clifton and PA jori Lopez at bedside to assist with patient's consent. Sugar-tong splint placed postreduction. CMS intact. Patient states splint feels comfortable. Postreduction films obtained. No significant change. will have patient follow up with ortho. Referral provided. Advised to contact for follow-up. Advised tylenol/ motrin. Morphine sent to pharmacy for break through pain. Patient has remained stable throughout ED visit today. Discussed worrisome signs and symptoms and when to return to the ED. All questions answered at this time. Patient is agreeable with disposition and stable for discharge. Medications Administered Discontinued Medications Generic Name Dose Route Start Last Admin Trade Name Rand PRN Reason Stop Dose Admin Bupivacaine HCl 5 ml 04/05/25 12:28 04/05/25 12:47 Bupivacaine Mpf 0.25 % 10 Ml Vial INFILTRATI 04/05/25 12:29 5 ml ONCE ONE Administration Ibuprofen 600 mg 04/05/25 11:27 04/05/25 11:56 Ibuprofen 600 Mg Tablet PO 04/05/25 11:28 600 mg ONCE ONE Administration Lidocaine HCl 10 ml 04/05/25 11:42 04/05/25 11:55 Lidocaine Hcl 1 % Mpf 5 Ml Vial INFILTRATI 04/05/25 11:43 10 ml ONCE ONE Administration Procedures Nerve Block Nerve Block 1: Time out performed: Yes Local Anesthetic: lidocaine 1% and bupivacaine 0.25% Amount of anesthesia used (mL): 10 Side: left Nerve Blocks: hematoma block Procedure Successful: Yes Patient Tolerated Procedure: well Complications: none Orthopedic Fracture Reduction Fracture #1: Time Out Performed: Yes Side: left Fracture Reduction Location: radius Analgesia: hematoma block Technique: direct manipulation Post Reduction X-rays Demonstrate: other (no change) Post-reduction neuro exam: intact Post-reduction vascular exam: intact Splint Applied: Yes Patient Tolerated Procedure: well Orthopedic Splinting/Casting Injury #1: Side: left Upper Extremity Injury Location: wrist Upper Extremity Immobilizer: sling/shoulder immobilizer and sugar tong splint Medical Decision Making Medical Decision Making MDM Narrative: 69-year-old male with pmhx significant for AAA, type 1 diabetes, HTN, claudication presents to the ED today with left wrist/hand pain status post mechanical fall off ladder from approximately 6-8 ft height prior to arrival. patient is hypertensive, vitals are otherwise wnl. he is nontoxic appearing and in NAD. on exam, noted deformity to L wrist with overlying swelling. no open wounds. Radial pulse intact. ROM intact to flexion and extension of left wrist with pain. Able to move all digits. Cap refill less than 2 seconds. Sensation intact distally. No other joint tenderness. Ambulating with steady gait. No midline spinous tenderness or step-off deformity. No paraspinal muscle tenderness to palpation. Exam nonfocal. Differential diagnosis includes wrist fracture, dislocation, sprain/strain. unlikely neurovascular compromise, ischemic limb, threat to limb, compartment syndrome. XR left hand/wrist ordered from triage. XRs lumbar spine and tib/fib ordered to r/o distracting injury secondary to impact. CT head/c spine ordered. Agreeable to motrin, nothing stronger. Differential Diagnosis Differential Diagnoses: The differential diagnosis associated with the presentation includes as above. Admission/Observation not indicated. Independent Interpretation I performed an independent interpretation of an: Plain X-Ray and CT Scan Interpretation: XR left wrist/hand showing distal radial fracture XR b/l tib/fib without fracture XR lumbar spine without fracture CT head/brain without bleed CT c spine without fracture Radiology Impression Discussion of test interpretation with radiology: I have reviewed the radiologist's reading. Radiologist Impression: EXAMINATION: CT HEAD WITHOUT CONTRAST CLINICAL INFORMATION: Fall from 8 feet high. Head injury. COMPARISON: None available. TECHNIQUE: Contiguous axial imaging was performed from the skull base to vertex without intravenous administration of contrast. This CT examination was performed using dose optimization techniques as appropriate, variously including the following: *Automated exposure control *Adjustment of mA and/or kV according to patient size (this includes techniques or standardized protocols for targeted exams where dose is matched to indication/reason for exam; i.e. extremities or head) *Use of iterative reconstruction technique FINDINGS: There is no evidence of intracranial hemorrhage or extra-axial fluid collection. There is no mass effect, or edema. No CT evidence of acute territorial infarct. Ventricles, sulci, and cisterns are normal in size and configuration for patient age. No hydrocephalus. No midline shift. Negative hyperdense MCA sign. Negative insular ribbon sign. Patchy periventricular and deep white matter hypoattenuation is consistent with mild small vessel ischemic changes. Normal pituitary. Globes and orbital contents image normally. No extracranial soft tissue abnormalities. Mild to moderate mucosal thickening right maxillary sinus. The paranasal sinuses, mastoid air cells, and tympanic cavities are otherwise normally aerated. No suspicious bony abnormalities. There are no acute fractures evident. CT/CT head/brain wo IV con IMPRESSION: No acute intracranial abnormality. No fracture evident. Electronically signed by: Aaron Gregg MD 04/05/2025 12:43 PM EDT RP Date of Service: 04/05/25 Procedure(s): CT cervical spine wo IV con Accession Number(s): [id number] cc: Parveen Hardin [facility]-; Aydee Maciel~ Report Number: [id number]: Total DLP = 482.00 mGy-cm EXAMINATION: CT CERVICAL SPINE WITHOUT CONTRAST CLINICAL INFORMATION: Fall from a foot height, neck pain. COMPARISON: None available. TECHNIQUE: Spiral CT imaging of the cervical spine performed in axial plane without contrast. Multiplanar reformatted images were constructed from the axial data set. This CT examination was performed using dose optimization techniques as appropriate, variously including the following: *Automated exposure control *Adjustment of mA and/or kV according to patient size (this includes techniques or standardized protocols for targeted exams where dose is matched to indication/reason for exam; i.e. extremities or head) *Use of iterative reconstruction technique FINDINGS: CORONAL ALIGNMENT: -Normal. SAGITTAL ALIGNMENT: -Normal. C1-C2 AND CRANIOCERVICAL JUNCTION: -Intact and aligned. 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 VERTEBRAL BODIES AND FACETS: -No fracture, compression deformity, or suspicious bone lesion. No traumatic subluxation. -Normal facet alignment with mild multilevel degenerative facet changes bilaterally. DISCS: -Moderate disc degeneration C5-6, C6-7, and C7-T1. CENTRAL CANAL: -No evidence of high-grade central canal narrowing or large disc herniation allowing for modality limitations. PREVERTEBRAL AND PARAVERTEBRAL SOFT TISSUES: -No prevertebral or paravertebral soft tissue swelling. No abnormal fluid collection. -Moderate bilateral carotid bulb calcification right greater than left. -Normal thyroid. LUNG APICES: -Clear bilaterally. No pneumothorax. CT/CT cervical spine wo IV con IMPRESSION: 1. No CT evidence of acute cervical spine fracture or injury. Mild to moderate degenerative spondylosis. Electronically signed by: Aaron Gregg MD 04/05/2025 12:48 PM EDT RP Date of Service: 04/05/25 Procedure(s): XR lumbar spine 2-3V Accession Number(s): [id number] cc: Parveen Hardin; Aydee Maciel~ EXAMINATION: XR LUMBOSACRAL SPINE CLINICAL INFORMATION: fall from 8 ft height COMPARISON: None available. TECHNIQUE: Three views of the lumbosacral spine. FINDINGS: No scoliosis. Mild straightening of the normal lordosis. No subluxations. No fractures, compression deformities, or suspicious bone lesions. Facets are normally aligned. There are multilevel mild degenerative facet changes. There is mild to moderate degenerative disc change at L1-2, L3-4 and L5-S1. The sacrum is intact. SI joints demonstrate mild degenerative arthritis. Soft tissues demonstrate vascular calcifications. XR/XR lumbar spine 2-3V IMPRESSION: No acute bony abnormalities of the lumbar spine. Mild to moderate spondylosis. Electronically signed by: Aaron Gregg MD 04/05/2025 12:23 PM EDT Procedure(s): XR Tibia Fibula Kerri 2V Accession Number(s): [id number] cc: Parveen Hardin; Aydee Maciel~ EXAMINATION: XR TIBIA AND FIBULA, KERRI 2V CLINICAL INFORMATION: fall from 8 ft height r/o fracture COMPARISON: None available. TECHNIQUE: AP and lateral views of the bilateral tibia and fibula were obtained. FINDINGS: RIGHT TIBIA/FIBULA: No fracture or dislocation. No bone lesion. Mild chondrocalcinosis of the knee. Vascular calcifications in the soft tissues. LEFT TIBIA/FIBULA: No fracture or dislocation. No bone lesion. Mild chondrocalcinosis of the knee. Vascular calcifications in the soft tissues. XR/XR Tibia Fibula Kerri 2V IMPRESSION: No acute findings of the bilateral tibia and fibula. Electronically signed by: Aaron Gregg MD 04/05/2025 12:27 PM EDT Procedure(s): XR hand LT 2V Accession Number(s): [id number] cc: Gege Prieto PA-C; Parveen Hardin~ EXAMINATION: XR HAND, LEFT CLINICAL INFORMATION: fall, pain COMPARISON: None available. TECHNIQUE: PA, lateral, and oblique views of the left hand. FINDINGS: Comminuted and intra-articular distal radial fracture present, with minimal impaction, mild dorsal angulation, and mild displacement. Ulnar styloid avulsion fracture. Carpal bones appear intact. No additional fractures. Soft tissue swelling about the wrist. There is vascular calcification. XR/XR hand LT 2V IMPRESSION: 1. Comminuted, intra-articular mildly dorsally angulated and mildly displaced distal radial fracture. 2. Ulnar styloid avulsion fracture. 3. Soft tissue swelling. Electronically signed by: Aaron Gregg MD 04/05/2025 11:27 AM EDT RP Prescription Management I considered prescription management with: Pain Medication Social Determinants Patient?s care significantly limited by Social Determinants of Health including: Other Social Determinant of Health Critical Care Time Critical Care Time Critical Care Time: No Discharge Plan Discharge Clinical Impression: Closed fracture distal radius and ulna Patient Disposition: Home, Self-Care Instructions: Wrist Fracture in Adults (ED) Additional Instructions: You have been evaluated in the Emergency Department today for left wrist/hand pain following a fall. Your evaluation showed a fracture of your left radius and ulna (wrist). I have placed your wrist in a splint today. Avoid getting the splint wet. We have provided a sling for you to use while your wrist heals. Please rest and elevate your wrist. I recommend you take 600mg ibuprofen every 6 hours or tylenol 650mg every 6 hours as needed for pain. If needed, you can alternate these medications so that you take one medication every 3 hours. For example, at noon take ibuprofen, then at 3pm take tylenol, then at 6pm take ibuprofen.? Please take morphine as directed as necessary for breakthrough pain. Please follow-up with an orthopedic surgeon in 1 week. You have been provided with a referral. Call them to make an appointment, they will not call you. Return to the Emergency Department if you experience worsening pain, numbness, tingling, change of color in your fingers, or any other concerning symptoms. Prescriptions: New morphine 15 mg tablet 15 mg PO Q8H PRN (Reason: pain (scale score 7-10)) 3 Days Qty: 9 0RF Rx Instructions: Partial Fill upon patient request. No Action (DME) blood-glucose meter [FreeStyle Lite Meter] Kit See Rx Instructions .ROUTE .MEDSUPPLY Qty: 1 0RF Rx Instructions: As directed 4x/day cilostazol 100 mg tablet 100 mg PO BID 90 Days Qty: 180 1RF insulin lispro [Humalog KwikPen Insulin] 100 unit/mL insulin pen 1 sliding scale dose subcut USEASDIRECTD Qty: 36 2RF Rx Instructions: 6 units breakfast, lunch 8 units for dinner and 1 unit for bg over 150mg/dl and every 50mg/dl with a max a 5 extra units, 1-2 units with snack subcut up to 6 times a day; up to 25 units today ezetimibe 10 mg tablet 10 mg PO DAILY 30 Days Qty: 30 11RF rosuvastatin 40 mg tablet 40 mg PO DAILY 30 Days Qty: 30 6RF lisinopril 20 mg tablet 30 mg PO DAILY Qty: 135 1RF insulin glargine [Lantus Solostar U-100 Insulin] 100 unit/mL (3 mL) insulin pen 13 unit subcut BEDTIME 90 Days Qty: 12 1RF (DME) pen needle, diabetic 32 gauge x 5/32 needle See Rx Instructions .ROUTE .COMPLEX Qty: 600 1RF Dose Instruction: USE DIRECTED SEVEN TIMES PER DAY Rx Instructions: USE DIRECTED SEVEN TIMES PER DAY doxycycline hyclate 100 mg capsule 100 mg PO BID Qty: 14 0RF cephalexin 500 mg capsule 500 mg PO BID Qty: 14 0RF Baqsimi 3 mg/actuation spray,non-aerosol 3 mg intranasal ONCE 30 Days Qty: 2 3RF (DME) Dexcom G6 Transmitter Device See Rx Instructions .Route Rx Instructions: As directed (DME) Dexcom G6 Sensor Device See Rx Instructions .Route Rx Instructions: As directed (DME) 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 Comminuted, intra-articular mildly dorsally angulated and mildly displaced distal radial fracture. 2. Ulnar styloid avulsion fracture. 3. Soft tissue swelling.) [facility] [Outside] Parveen Hardin FNP-[facility] [Primary Care Provider] - Interventions: ED Discharge Assessment Last Done: 04/05/25 14:23 Discharge Date/Time: 04/05/25 14:23 Print Language: Persian
[2025-04-05 11:52] VITALS: BP 148/58; PULSE 59; RESP 16; TEMP 36.7; O2SAT 97
[2025-04-05] MEDS: Lidocaine HCl 1 % MPF 5 ML VIAL 10 ML INFILTRATI (11:55)
[2025-04-05] MEDS: Ibuprofen 600 MG TABLET PO (11:56)
[2025-04-05] MEDS: BUPivacaine MPF 0.25 % 10 ML VIAL 5 ML INFILTRATI (12:47)
[2025-04-05 14:23] VITALS: BP 148/58; PULSE 59; RESP 16; TEMP 36.7; O2SAT 97
== END 2025-04-05 14:23 | disposition home or self-care (01) ==
PROVIDERS: Emergency Provider Emergency Medicine Emergency Medical Services; PCP Nurse Practitioner Family
DX: S52.502A Unspecified fracture of the lower end of left radius, initial encounter for closed fracture (principal); S52.602A Unspecified fracture of lower end of left ulna, initial encounter for closed fracture; M54.2 Cervicalgia; R51.9 Headache, unspecified; M54.50 Low back pain, unspecified; M79.602 Pain in left arm; M79.601 Pain in right arm; M79.605 Pain in left leg; M79.604 Pain in right leg; I10 Essential (primary) hypertension; E10.9 Type 1 diabetes mellitus without complications; W11.XXXA Fall on and from ladder, initial encounter; Y93.9 Activity, unspecified; Y92.9 Unspecified place or not applicable; Y99.0 Civilian activity done for income or pay; Z79.4 Long term (current) use of insulin; Z87.891 Personal history of nicotine dependence; Z79.899 Other long term (current) drug therapy
CPT/HCPCS: 25605; 29125; 64450; 70450; 72100; 72125; 73110; 73120; 73590; 99284; J0665; J2003

== ENCOUNTER → 2025-04-05 11:07 | Outpatient (BNV) | payer OTHER, SELFPAY | PROVIDERS: Emergency Provider Emergency Medicine Emergency Medical Services; PCP Nurse Practitioner Family; Visit Provider Radiology Diagnostic Radiology | DX: M54.2 Cervicalgia (principal); S09.0XXA Injury of blood vessels of head, not elsewhere classified, initial encounter; M47.816 Spondylosis without myelopathy or radiculopathy, lumbar region; S52.572A Other intraarticular fracture of lower end of left radius, initial encounter for closed fracture; S52.612A Displaced fracture of left ulna styloid process, initial encounter for closed fracture; Z03.89 Encounter for observation for other suspected diseases and conditions ruled out; W11.XXXA Fall on and from ladder, initial encounter | CPT/HCPCS: 70450; 72100; 72125; 73110; 73120; 73590 ==

== ENCOUNTER 2025-04-10 14:47 | Outpatient (REF) | payer OTHER, SELFPAY ==
--- NOTE | ~2025-04-10 | XR_ITS ---
EXAMINATION: XR WRIST, LEFT CLINICAL INFORMATION: M25.532 - Pain in left wrist COMPARISON: April 05, 2025 TECHNIQUE: PA, lateral, and oblique views of the left wrist. FINDINGS: Overlying cast mildly extrudes bony detail. There is extensive vascular calcification in the radial artery. There is an impacted intra-articular linear fracture of the distal radius and a transverse fracture through the base of the ulnar styloid. There has been no migration of fragments since the postreduction film XR/XR wrist LT min 3V IMPRESSION: Impacted comminuted intra-articular distal radial fracture and transverse fracture through the base of the ulnar styloid without fragment migration Electronically signed by: Good Carey MD 04/10/2025 06:29 PM EDT
== END 2025-04-10 14:48 | disposition home or self-care (01) ==
LOC: HO.HOSX 14:47
PROVIDERS: PCP Nurse Practitioner Family; Visit Provider Orthopaedic Surgery
DX: S52.572D Other intraarticular fracture of lower end of left radius, subsequent encounter for closed fracture with routine healing (principal); S52.615D Nondisplaced fracture of left ulna styloid process, subsequent encounter for closed fracture with routine healing; M25.532 Pain in left wrist
CPT/HCPCS: 73110; 99202

== ENCOUNTER 2025-04-10 14:47 | Outpatient (AMB) | payer OTHER, SELFPAY ==
--- NOTE | 2025-04-10 15:22 | MHC.OFFVIS ---
Vital Signs 04/10/25 15:39 Height 6 ft Weight 182 lb BMI 24.7 Intake Visit Reasons: FC- Left distal radius and ulna fx DOI 04/05/25 Intake Note: Vinnie 69 yr old right hand dominant male presents today for his W/C fracture care visit s/p ED visit 04/05/25. Patient reports he fall off ladder from approximately 6-8 ft height. Seen in ED where xrays were taken, confirmed fracture, reduced and splinted. Currently states he has no pain and is doing well. Denies numbness or tingling. Allergies No Known Allergies Allergy (Verified 04/10/25 15:39) HPI HPI FC- Left distal radius and ulna fx DOI 04/05/25: Details: Vinnie is a 69 year old right hand dominant man who presents for a left distal radius & ulnar styloid fracture, from a fall off a ladder, DOI: 04/05/25. He was seen in the ED where his fracture was reduced and placed in a splint. He is a Diabetic, his most recent HgA1c was 6.9% on 01/09/25. 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 FORMERLY [facility], 1928–1983 Medical History Nicotine dependence, cigarettes, uncomplicated T1DM (type 1 diabetes mellitus) Essential hypertension Hyperlipidemia LDL goal <100 Surgical History History of carpal tunnel surgery of left wrist History of carpal tunnel surgery of right wrist Family History Father No problems noted. Mother No problems noted. Social History Household Members: Spouse Housing: House Alcohol intake: never Patient Tobacco Use Status: Former Tobacco user e-Cigarette/Vaping Use: Never Used Second Hand Smoke Exposure: No Substance Use Type: Marijuana Current occupational status: employed Current occupation: [employer] Current occupational exposures/hazards: No Cognitive needs: No Hearing needs: No Vision needs: No Review of Systems Const All systems reviewed & are unremarkable except as noted in HPI and below Physical Exam Vital Signs: BMI result Body Mass Index 24.7 Const General: cooperative, healthy appearing and no acute distress Orientation/consciousness: patient oriented x3 HEENT Head: Yes normocephalic and Yes atraumatic Eyes EOM: EOMs intact bilaterally Resp Effort & Inspection: normal respiratory effort and able to speak in complete sentences Cardio Jugular venous distension: no JVD Skin General skin exam: turgor normal Rashes: no rashes Neuro General: patient oriented x3 Extrem Other: Evaluation of Left Upper Extremity: The patient is alert, oriented, and in no acute distress He is in a sugar-tong splint to the elbow. He appears comfortable and says he is not in pain. The splint is clean dry and intact. It is a little bit too long extending to the palmar digital creases. He can actively flex and extend his fingers at the PIP and D IP joints but is limited by the sugar-tong splint. Sensation intact to the tips of all digits Cap refill is brisk ER physician note from 04/05/2025: ?No open wounds ? reported in physician note Radiographs: 3 views of the left wrist were taken, viewed, and compared to post-reduction radiographs from 04/05/25 by me today in clinic. They show a very distal comminuted intra-articular distal radius fracture ~10 degrees apex volar angulation, loss of radial height and inclination, and satisfactory alignment on the PA view. There is also a non-displaced ulnar styloid base fracture. Fracture sites unchanged from prior. Psych Appearance: grossly normal Affect: normal affect Attitude: cooperative Assessment & Plan Assessment & Plan (1) Closed fracture distal radius and ulna: Code(s): S52.509A - Unspecified fracture of the lower end of unspecified radius, initial encounter for closed fracture; S52.609A - Unspecified fracture of lower end of unspecified ulna, initial encounter for closed fracture Category: Medical (2) Nicotine dependence, cigarettes, uncomplicated: Code(s): F17.210 - Nicotine dependence, cigarettes, uncomplicated Category: Medical (3) T1DM (type 1 diabetes mellitus): Code(s): E10.9 - Type 1 diabetes mellitus without complications Category: Medical Qualifiers: Diabetes mellitus complication status: without complication Qualified Code(s): E10.9 - Type 1 diabetes mellitus without complications Plan Assessment & Plan: 1. Left distal radius fracture, comminuted, intra-articular with depression & apex volar angulation From a fall, DOI: 5/29/25 2. Left ulnar styloid fracture I educated him about these conditions I discussed operative and non-operative treatment options I think he would benefit from an ORIF, with a possible external fixation, but he is hesitant to proceed with surgery. We agreed to try and see if we can treat this non operatively. He will continue to wear his splint like a cast until his next appointment. We modified his Sugar-tong splint by removing some fiberglass from the palm to allow for better finger ROM He is to lift nothing heavier than a cellphone He will continue to work on gentle finger ROM exercises He will follow up next week with X-rays, 3V L wrist, IP If he can maintain this fracture alignment, we will try and put him in a short-arm cast. He understands that it is possible that the fracture may move, resulting in worse fracture alignment. If that happens, we may need to consider an external fixator. He understands and agrees with the plan. Scribed for Dea Mas MD by Chad Nolasco, medical office technologist, on 04/10/25 at 3:50 PM, EST. Coding Level of Care Code New Pt Level 4 (99015) Diagnoses Closed fracture distal radius and ulna S52.509A; S52.609A Nicotine dependence, cigarettes, uncomplicated F17.210 Type 1 diabetes mellitus without complication E10.9 Diabetes mellitus complication status: without complication
[2025-04-10 15:39] VITALS: BMI 24.7
== END 2025-04-10 16:07 | disposition home or self-care (01) ==
LOC: HO.HOS 14:47
PROVIDERS: PCP Nurse Practitioner Family; Visit Provider Orthopaedic Surgery
DX: S52.572A Other intraarticular fracture of lower end of left radius, initial encounter for closed fracture (principal); S52.692A Other fracture of lower end of left ulna, initial encounter for closed fracture; F17.210 Nicotine dependence, cigarettes, uncomplicated; E10.9 Type 1 diabetes mellitus without complications
CPT/HCPCS: 99204

== ENCOUNTER → 2025-04-10 15:30 | Outpatient (BNV) | payer OTHER, SELFPAY | PROVIDERS: PCP Nurse Practitioner Family; Visit Provider Radiology Diagnostic Radiology | DX: S52.572A Other intraarticular fracture of lower end of left radius, initial encounter for closed fracture (principal); S52.612A Displaced fracture of left ulna styloid process, initial encounter for closed fracture | CPT/HCPCS: 73110 ==

== ENCOUNTER 2025-04-11 09:37 | Outpatient (AMB) | payer OTHER, SELFPAY ==
--- NOTE | 2025-04-11 07:10 | A.OFFVIS_ITS ---
Vital Signs 04/11/25 09:44 04/11/25 10:10 Height 6 ft Weight 176 lb 5.917 oz BMI 23.9 BP 172/68 H 142/62 H Blood Pressure Location Rt brachial Rt brachial Position Sitting Sitting Pulse 67 Pulse Source Pulse Oximeter Pulse Oximetry (%) 98 Oxygen Delivery Method Room Air Intake Visit Reasons: T2DM Intake Note: Patient present today to follow up on Type 1 Diabetes Mellitus. Last Diabetic eye exam was on: 05/02/2024 Last Podiatry exam was on: Does not see a Ingot Caster Most recent HbA1c: 7.7%, 04/11/2025 Random Glucose- 175 mg/dL, Today Allergies No Known Allergies Allergy (Verified 04/10/25 15:39) HPI Comments Details: Patient is 69 yo male with DM type 1 diagnosed at age 12, who presents for management of diabetes. He was last seen 01/09/25 with an a1c of 6.9 %. Hgb A1C 09/08/24 %, 05/08/24 7%. He has been well controlled since 2021. Hgb A1C 04/11/25 7.7%. At his last visit he was recommended to see a roving machine operator due to the thickness of his toenails which he declined. We also briefly discussed a CeQur insulin patch pump. Tresiba was discussed in the past which had a higher copay. He remains on Lantus but no overnight lows. Patient fell at work off a ladder. No low sugar involved. He is currently out of work. Has a fracture left arm which may require surgery and had stitches. Past medical history: DM1, HTN, HLD Micro and macrovascular complications: none known Diabetes medications: Lantus 14 units Humalog 1-2 unit for his snacks. Breakfast 6 units Lunch 6 units Supper 8 units increase insulin 1-2 units for larger meals Correction factor for meals 1 unit for every 50 mg/dL over 150 up to a maximum of 5 units Dexcom average glucose: 160 14 day continuous glucose monitor report reviewed Glucose Managment indicator 7.1 % Days with CGM data 92 % TIme in ranges: Three % very high (above 250) 29 % high ?(181-250) 67 % in range ?(70-180] 1 % low (69-55) 1 % ?very low (below 54) Interpretation ; consistent lows to 70 after supper which the patient is feeling. 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 The liver contour is normal. Parenchymal echogenicity is normal. No focal hepatic lesion. There is no intrahepatic biliary duct dilatation seen [facility] Medical History (Updated 04/11/25 @ 09:58 by HITESH Reyes) History of wrist fracture Nicotine dependence, cigarettes, uncomplicated T1DM (type 1 diabetes mellitus) Essential hypertension Hyperlipidemia LDL goal <100 Surgical History History of carpal tunnel surgery of left wrist History of carpal tunnel surgery of right wrist Family History Father No problems noted. Mother No problems noted. Social History Household Members: Spouse Housing: House Alcohol intake: never Patient Tobacco Use Status: Former Tobacco user e-Cigarette/Vaping Use: Never Used Second Hand Smoke Exposure: No Substance Use Type: Marijuana Current occupational status: employed Current occupation: [employer] Current occupational exposures/hazards: No Cognitive needs: No Hearing needs: No Vision needs: No Physical Exam Vital Signs: Last Vital Signs Pulse 67 04/11/25 09:44 BP 172/68 H 04/11/25 09:44 Pulse Ox 98 04/11/25 09:44 Oxygen Delivery Method Room Air 04/11/25 09:44 BMI result Body Mass Index 23.9 Const Other: Absence of Cushingoid features. Absence of acromegalic features. Neck exam reveals nl size thyroid about 15 gms. No thyroid nodules palpable. Heart S1 S2, Reg R/R. No M/R G. Skin exam reveals absence of vitiligo or acanthosis nigricans. left arm in splint Foot exam deferred Office Procedures Glucose Monitoring Details Details: see hpi 82817 - Glucose monitoring, continuous-physician I&R Procedure code (CPT) selection complete Results AMB Hemoglobin A1c AMB Hemoglobin A1c 7.7 % Last Edit by HITESH Reyes on 04/11/25 10:07 Assessment & Plan Assessment & Plan (1) T1DM (type 1 diabetes mellitus): Code(s): E10.9 - Type 1 diabetes mellitus without complications Category: Medical Qualifiers: Diabetes mellitus complication status: without complication Qualified Code(s): E10.9 - Type 1 diabetes mellitus without complications Plan: 69-year-old type 1 diabetic with nephropathy with the an A1c of 7.7%. His current download is in good range with the exception of consistent lows after supper. He will continue all current doses of insulin but we will decrease his supper from 8-6 units of fast acting. He was again counseled to have his fasting blood work done The patient had an opportunity to ask questions regarding treatment plan. The patient expressed understanding and agreement with the above treatment plan. The patient is aware they should contact our office by phone for worsening glucose readings or for any low blood sugars which may warrant a change in diabetes medication. Compliance is encouraged with medications and any followup testing/consults which may have been ordered. Orders: Orders AMB Hemoglobin A1c Today E10.9 - Type 1 diabetes mellitus without complications AMB Glucose Monitoring Today E10.9 - Type 1 diabetes mellitus without complications Coding Level of Care Code Est Pt Level 4 (05865) Complex EM visit Add On G2211 Diagnoses Type 1 diabetes mellitus without complication E10.9 Diabetes mellitus complication status: without complication CPT Codes Details - CPT: 08318 - Glucose monitoring, continuous-physician I&R ([id number])
[2025-04-11 09:44] VITALS: BP 172/68; PULSE 67; O2SAT 98; BMI 23.9
[2025-04-11 10:02] LABS: Glucose, Whole Blood 175 mg/dL (60-115)
[2025-04-11 10:10] VITALS: BP 142/62
== END 2025-04-11 10:12 | disposition home or self-care (01) ==
LOC: HO.ENCR 09:38
PROVIDERS: PCP Nurse Practitioner Family; Visit Provider Nurse Practitioner Adult Health
DX: E10.9 Type 1 diabetes mellitus without complications (principal)
CPT/HCPCS: 95251; 99214

== ENCOUNTER → 2025-04-11 09:37 | Outpatient (BNVA) | payer OTHER, SELFPAY | PROVIDERS: PCP Nurse Practitioner Family; Visit Provider Nurse Practitioner Adult Health | DX: E10.9 Type 1 diabetes mellitus without complications (principal); I10 Essential (primary) hypertension; E78.5 Hyperlipidemia, unspecified; Z79.4 Long term (current) use of insulin | CPT/HCPCS: 82947; 83036 ==

== ENCOUNTER 2025-04-16 10:36 | Outpatient (REF) | payer OTHER, SELFPAY | END 2025-04-16 10:37 | disposition home or self-care (01) | LOC: HO.HOSX 10:36 | PROVIDERS: Visit Provider Orthopaedic Surgery | DX: Z13.89 Encounter for screening for other disorder (principal) ==

== ENCOUNTER 2025-04-18 08:20 | Outpatient (REF) | payer OTHER, SELFPAY ==
--- NOTE | ~2025-04-18 | XR_ITS ---
EXAMINATION: XR WRIST, LEFT CLINICAL INFORMATION: M25.532 - Pain in left wrist COMPARISON: April 10, 2025 TECHNIQUE: PA, lateral, and oblique views of the left wrist. FINDINGS: Overlying cast obscures bony detail. Again seen is an impacted intra-articular fracture of the distal radius with mild loss of radial styloid height and angulation. Fracture likely extends to both the distal articular surface and probably the distal radioulnar joint. On lateral, there is mild impaction of the dorsal fragment and a visible gap subarticular surface of radius. Transverse fracture through the base of the ulnar styloid is again seen. Fragment positioning and orientation has not changed. Moderate calcifications are visible in the radial artery. XR/XR wrist LT min 3V IMPRESSION: Stable impacted distal radial intra-articular fracture and fracture through the ulnar styloid base. Electronically signed by: Good Carey MD 04/18/2025 03:47 PM EDT
== END 2025-04-18 08:21 | disposition home or self-care (01) ==
LOC: HO.HOSX 08:20
PROVIDERS: Visit Provider Orthopaedic Surgery
DX: S52.572A Other intraarticular fracture of lower end of left radius, initial encounter for closed fracture (principal); S52.612A Displaced fracture of left ulna styloid process, initial encounter for closed fracture; F17.210 Nicotine dependence, cigarettes, uncomplicated
CPT/HCPCS: 25600; 73110; 99212

== ENCOUNTER 2025-04-18 12:50 | Outpatient (AMB) | payer OTHER, SELFPAY ==
--- NOTE | 2025-04-18 12:53 | MHC.OFFVIS ---
Intake Visit Reasons: FC- Left distal radius and ulna fx DOI 04/05/25 Intake Note: Vinnie 69 yr old male presents today for a fracture care visit for his left distal radius and ulna fracture DOI 04/05/25. Patient states he was a few steps down from the top of his ladder, clearing off debris when the debris fell back onto him knocking him off the ladder. He was splinted and referred to orthopedics. Patient was reduced in ED. Denies numbness or tingling. Allergies No Known Allergies Allergy (Verified 04/18/25 13:36) HPI HPI FC- Left distal radius and ulna fx DOI 04/05/25: Details: Vinnie is a 69 year old right hand dominant man who presents for a left distal radius & ulnar styloid fracture, from a fall off a ladder, DOI: 04/05/25. He says he is doing well overall. He says he is happy that he has improved ROM in his fingers, and denies having pain.. 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 [facility] [facility] Medical History (Updated 04/11/25 @ 09:58 by HITESH Reyes) History of wrist fracture Nicotine dependence, cigarettes, uncomplicated T1DM (type 1 diabetes mellitus) Essential hypertension Hyperlipidemia LDL goal <100 Surgical History History of carpal tunnel surgery of left wrist History of carpal tunnel surgery of right wrist Family History Father No problems noted. Mother No problems noted. Social History Household Members: Spouse Housing: House Alcohol intake: never Patient Tobacco Use Status: Former Tobacco user e-Cigarette/Vaping Use: Never Used Second Hand Smoke Exposure: No Substance Use Type: Marijuana Current occupational status: employed Current occupation: [employer] Current occupational exposures/hazards: No Cognitive needs: No Hearing needs: No Vision needs: No Review of Systems Const All systems reviewed & are unremarkable except as noted in HPI and below Physical Exam Const General: no acute distress and alert Orientation/consciousness: patient oriented x3 Neuro General: patient oriented x3 Extrem Other: Evaluation of Left Upper Extremity: The patient is alert, oriented, and in no acute distress He is in a sugar-tong splint to the elbow. He appears comfortable and says he is not in pain. The splint is clean dry and intact. It is a little bit too long extending to the palmar digital creases. He can make a fist and extend all his digits Sensation intact to the tips of all digits Cap refill is brisk ER physician note from 04/05/2025: ?No open wounds ? reported in physician note Radiographs: 3 views of the left wrist were taken, viewed, and compared to radiographs from 04/10/25 by me today in clinic. They show a very distal comminuted intra-articular distal radius fracture now with ~13 degrees apex volar angulation, loss of radial height and inclination, and satisfactory alignment on the PA view. There is also a non-displaced ulnar styloid base fracture. Fracture site mildly changed from prior. Psych Appearance: grossly normal Affect: normal affect Attitude: cooperative Office Procedures AMB Fracture Care Details: Fracture care, distal radius [id number] Fracture Billing Code: Fracture Billing Code Assessment & Plan Assessment & Plan (1) Closed fracture distal radius and ulna: Code(s): S52.509A - Unspecified fracture of the lower end of unspecified radius, initial encounter for closed fracture; S52.609A - Unspecified fracture of lower end of unspecified ulna, initial encounter for closed fracture Category: Medical (2) Nicotine dependence, cigarettes, uncomplicated: Code(s): F17.210 - Nicotine dependence, cigarettes, uncomplicated Category: Medical (3) T1DM (type 1 diabetes mellitus): Code(s): E10.9 - Type 1 diabetes mellitus without complications Category: Medical Qualifiers: Diabetes mellitus complication status: without complication Qualified Code(s): E10.9 - Type 1 diabetes mellitus without complications Plan Assessment & Plan: 1. Left distal radius fracture, comminuted, intra-articular with depression & apex volar angulation From a fall, DOI: 04/05/25 2. Left ulnar styloid fracture I educated him about these conditions I discussed operative and non-operative treatment options His fracture site shifted slightly, going from 10-13 degrees apex volar angulation, but this is tolerable for the patient and he is still considering surgery only as a last resort. We will continue to manage this non-operatively He will continue to wear his splint like a cast until his next appointment. He is to lift nothing heavier than a cellphone for at least the next 4 weeks. He will continue to work on gentle finger ROM exercises He was given a note to remain out of work for at least the next week, where he may be placed in a cast. He will follow up next Wednesday with X-rays, 3V L wrist, OOP If he can maintain this fracture alignment, we will try and put him in a short-arm cast for 2 weeks He understands that it is possible that the fracture may move, resulting in worse fracture alignment. If that happens, we may need to consider an external fixator. He understands and agrees with the plan. Scribed for Dea Mas MD by Chad Nolasco, medical imaging tech, on 04/18/25 at 1:35 PM, EST. Orders: Orders XR wrist LT min 3V Today M25.532 - Pain in left wrist Coding Level of Care Code Est Pt Level 3 (52327) Diagnoses Closed fracture distal radius and ulna S52.509A; S52.609A Nicotine dependence, cigarettes, uncomplicated F17.210 Type 1 diabetes mellitus without complication E10.9 Diabetes mellitus complication status: without complication CPT Codes Fracture Care - Fracture Billing Code: Fracture Billing Code ([id number])
== END 2025-04-18 14:12 | disposition home or self-care (01) ==
LOC: HO.HOS 12:51
PROVIDERS: PCP Nurse Practitioner Family; Visit Provider Orthopaedic Surgery
DX: S52.592A Other fractures of lower end of left radius, initial encounter for closed fracture (principal); S52.602A Unspecified fracture of lower end of left ulna, initial encounter for closed fracture; F17.210 Nicotine dependence, cigarettes, uncomplicated; E10.9 Type 1 diabetes mellitus without complications
CPT/HCPCS: 25600; 99213

== ENCOUNTER → 2025-04-18 13:17 | Outpatient (BNV) | payer OTHER, SELFPAY | PROVIDERS: Visit Provider Radiology Diagnostic Radiology | DX: S52.572A Other intraarticular fracture of lower end of left radius, initial encounter for closed fracture (principal); S52.612A Displaced fracture of left ulna styloid process, initial encounter for closed fracture | CPT/HCPCS: 73110 ==

== ENCOUNTER 2025-04-24 08:58 | Outpatient (REF) | payer OTHER, SELFPAY ==
--- NOTE | ~2025-04-24 | XR_ITS ---
EXAMINATION: XR WRIST, LEFT CLINICAL INFORMATION: M25.532 - Pain in left wrist , follow-up fracture COMPARISON: April 18 2025 TECHNIQUE: PA, lateral, and oblique views of the left wrist. FINDINGS: There is a new overlying cast or splint. Again noted is a comminuted fracture of the distal radius with impaction of the central and dorsal and the radius. Fracture since the distal articular surface and probably to the distal radioulnar joint. There is a transverse fracture across the base of ulnar styloid. Fragment positioning is unchanged. Moderate calcification is evident in the radial artery. XR/XR wrist LT min 3V IMPRESSION: Impacted intra-articular fracture of the distal radius and fracture through the base of the styloid, stable fragment positioning status post splinting. Moderate atherosclerotic disease in the radial artery Electronically signed by: Good Carey MD 04/24/2025 01:41 PM EDT
== END 2025-04-24 08:59 | disposition home or self-care (01) ==
LOC: HO.HOSX 08:58
PROVIDERS: Visit Provider Orthopaedic Surgery
DX: M25.532 Pain in left wrist (principal); E10.9 Type 1 diabetes mellitus without complications; F17.210 Nicotine dependence, cigarettes, uncomplicated; S52.502A Unspecified fracture of the lower end of left radius, initial encounter for closed fracture; S52.602A Unspecified fracture of lower end of left ulna, initial encounter for closed fracture
CPT/HCPCS: 73110; 99212

== ENCOUNTER → 2025-04-24 13:01 | Outpatient (BNV) | payer OTHER, SELFPAY | PROVIDERS: Visit Provider Radiology Diagnostic Radiology | DX: M25.532 Pain in left wrist (principal) | CPT/HCPCS: 73110 ==

== ENCOUNTER 2025-04-24 13:07 | Outpatient (AMB) | payer OTHER, SELFPAY ==
[2025-04-24 13:25] VITALS: BMI 23.9
--- NOTE | 2025-04-24 13:25 | A.OFFVIS_ITS ---
Vital Signs 04/24/25 13:25 Height 6 ft Weight 176 lb BMI 23.9 Intake Visit Reasons: O/V Left distal radius and ulna fx DOI 04/05/25 Intake Note: Vinnie is a 69 year old male who presents today for a W/C follow up of his left wrist , s/p Left Distal Radius Fracture DOI 04/05/25. He fractured his wrist when he missed the few steps of the ladder. He was placed in a short arm cast. Cats removed in office and xrats updated in office. States he has no pain since removing his cast. States he has been working with light duty restrictions. Allergies No Known Allergies Allergy (Verified 04/24/25 13:26) HPI HPI O/V Left distal radius and ulna fx DOI 04/05/25: Details: Vinnie is a 69 year old right hand dominant man who presents for a left distal radius & ulnar styloid fracture, from a fall off a ladder, DOI: 04/05/25. He says he is doing well overall. He says he is happy that he has improved ROM in his fingers, and denies having pain. 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 [facility] Medical History (Updated 04/11/25 @ 09:58 by HITESH Reyes) History of wrist fracture Nicotine dependence, cigarettes, uncomplicated T1DM (type 1 diabetes mellitus) Essential hypertension Hyperlipidemia LDL goal <100 Surgical History History of carpal tunnel surgery of left wrist History of carpal tunnel surgery of right wrist Family History Father No problems noted. Mother No problems noted. Social History Household Members: Spouse Housing: House Alcohol intake: never Patient Tobacco Use Status: Former Tobacco user e-Cigarette/Vaping Use: Never Used Second Hand Smoke Exposure: No Substance Use Type: Marijuana Current occupational status: employed Current occupation: [employer] Current occupational exposures/hazards: No Cognitive needs: No Hearing needs: No Vision needs: No Physical Exam Vital Signs: BMI result Body Mass Index 23.9 Const General: no acute distress and alert Orientation/consciousness: patient oriented x3 Neuro General: patient oriented x3 Extrem Other: Evaluation of Left Upper Extremity: The patient is alert, oriented, and in no acute distress He can bring his fingers ~2cm from his palm and back into extension He can pronate to ~70 degrees He can supinate to ~20 degrees Fracture site non-tender Sensation intact to the tips of all digits Cap refill is brisk ER physician note from 04/05/2025: ?No open wounds ? reported in physician note Radiographs: 3 views of the left wrist were taken, viewed, and compared to radiographs from 04/05/25 by me today in clinic. They show a very distal comminuted intra- articular distal radius fracture now with ~13 degrees apex volar angulation, loss of radial height and inclination, and satisfactory alignment on the PA view. There is also a non-displaced ulnar styloid base fracture. Fracture site only mildly changed from original radiographs again reviewed today from 04/05/2025.. Psych Appearance: grossly normal Affect: normal affect Attitude: cooperative Assessment & Plan Assessment & Plan (1) Closed fracture distal radius and ulna: Code(s): S52.509A - Unspecified fracture of the lower end of unspecified radius, initial encounter for closed fracture; S52.609A - Unspecified fracture of lower end of unspecified ulna, initial encounter for closed fracture Category: Medical (2) Nicotine dependence, cigarettes, uncomplicated: Code(s): F17.210 - Nicotine dependence, cigarettes, uncomplicated Category: Medical (3) T1DM (type 1 diabetes mellitus): Code(s): E10.9 - Type 1 diabetes mellitus without complications Category: Medical Qualifiers: Diabetes mellitus complication status: without complication Qualified Code(s): E10.9 - Type 1 diabetes mellitus without complications Plan Assessment & Plan: 1. Left distal radius fracture, comminuted, intra-articular with depression & apex volar angulation From a fall, DOI: 04/05/25 2. Left ulnar styloid fracture I educated him about these conditions I discussed operative and non-operative treatment options His fracture still has ~13 degrees apex volar angulation, but this is tolerable for the patient and he is still considering surgery only as a last resort. We will continue to manage this non-operatively He was placed in a short arm cast to be worn for the next 2 weeks He is to lift nothing heavier than a cellphone for at least the next 3 weeks. He will continue to work on gentle ROM exercises He was given a note to remain out of work for the next 2 weeks. He will follow up in 2 weeks, with X-rays, 3V L wrist, OOP. Anticipate placement in velcro wrist splint with daily activities, to be removed for gentle ROM exercises at home Scribed for Dea Mas MD by Chad Nolasco, medical communication specialist, on 04/24/25 at 1:35 PM, EST. Orders: Orders XR wrist LT min 3V Today M25.532 - Pain in left wrist Coding Level of Care Code Global (04943) Diagnoses Closed fracture distal radius and ulna S52.509A; S52.609A Nicotine dependence, cigarettes, uncomplicated F17.210 Type 1 diabetes mellitus without complication E10.9 Diabetes mellitus complication status: without complication
== END 2025-04-24 14:00 | disposition home or self-care (01) ==
LOC: HO.HOS 13:07
PROVIDERS: Visit Provider Orthopaedic Surgery
DX: S52.509A Unspecified fracture of the lower end of unspecified radius, initial encounter for closed fracture (principal); S52.609A Unspecified fracture of lower end of unspecified ulna, initial encounter for closed fracture; F17.210 Nicotine dependence, cigarettes, uncomplicated; E10.9 Type 1 diabetes mellitus without complications
CPT/HCPCS: 99024

== ENCOUNTER 2025-05-08 09:28 | Outpatient (REF) | payer OTHER, SELFPAY ==
--- NOTE | ~2025-05-08 | XR_ITS ---
EXAMINATION: XR WRIST, LEFT CLINICAL INFORMATION: M25.532 - Pain in left wrist , fracture COMPARISON: April 24, 2025 TECHNIQUE: PA, lateral, and oblique views of the left wrist. FINDINGS: Again seen is a mildly impacted comminute fracture of the distal radius with mild loss of height of the radial styloid. Fracture involves the distal radial articular surface and the sigmoid notch/DRUJ. Transverse fracture through the ulnar styloid is again noted. No interval change of alignment. Extensive radial artery calcification is again noted. XR/XR wrist LT min 3V IMPRESSION: Stable distal radial and ulnar styloid fracture Electronically signed by: Good Carey MD 05/08/2025 03:34 PM EDT
== END 2025-05-08 09:29 | disposition home or self-care (01) ==
LOC: HO.HOSX 09:28
DX: M25.532 Pain in left wrist (principal); S52.502A Unspecified fracture of the lower end of left radius, initial encounter for closed fracture
CPT/HCPCS: 29075; 73110; 99212

== ENCOUNTER 2025-05-08 09:45 | Outpatient (AMB) | payer OTHER, SELFPAY ==
--- NOTE | 2025-05-08 10:10 | A.OFFVIS_ITS ---
Vital Signs 05/08/25 10:11 Height 6 ft Weight 176 lb BMI 23.9 Intake Visit Reasons: OV-LT distal radius and ulna fx DOI 04/05/25 Intake Note: Vinnie is a 69 year old right hand dominant male who presents today for a follow up and range of motion check for his left distal radius & ulnar styloid fracture, from a fall off a ladder, DOI: 04/05/25. Cast removed and xrays u pdated in office. Allergies No Known Allergies Allergy (Verified 04/24/25 13:26) HPI HPI OV-LT distal radius and ulna fx DOI 04/05/25: Details: Vinnie is a 69 year old right hand dominant male who presents today for a follow up and range of motion check for his left distal radius & ulnar styloid fracture, from a fall off a ladder, DOI: 04/05/25. Cast removed and xrays updated in office. Patient reports no ongoing pain, feels he is doing quite well. [facility] Medical History (Updated 04/11/25 @ 09:58 by HITESH Reyes) History of wrist fracture Nicotine dependence, cigarettes, uncomplicated T1DM (type 1 diabetes mellitus) Essential hypertension Hyperlipidemia LDL goal <100 Surgical History History of carpal tunnel surgery of left wrist History of carpal tunnel surgery of right wrist Family History Father No problems noted. Mother No problems noted. Social History Household Members: Spouse Housing: House Alcohol intake: never Patient Tobacco Use Status: Former Tobacco user e-Cigarette/Vaping Use: Never Used Second Hand Smoke Exposure: No Substance Use Type: Marijuana Current occupational status: employed Current occupation: [email or web address] Current occupational exposures/hazards: No Cognitive needs: No Hearing needs: No Vision needs: No Review of Systems Const All systems reviewed & are unremarkable except as noted in HPI and below Physical Exam Vital Signs: BMI result Body Mass Index 23.9 Const General: no acute distress and alert Orientation/consciousness: patient oriented x3 Neuro General: patient oriented x3 Extrem Other: Evaluation of Left Upper Extremity: The patient is alert, oriented, and in no acute distress He can bring his fingers to his palm and back into extension He can pronate to ~70 degrees He can supinate to ~20 degrees Fracture site non-tender Sensation intact to the tips of all digits Cap refill is brisk ER physician note from 04/05/2025: ?No open wounds ? reported in physician note Radiographs: 3 views of the left wrist were taken, viewed, and compared to radiographs from 04/05/25 by me today in clinic. They show a very distal comminuted intra- articular distal radius fracture now with ~13 degrees apex volar angulation, loss of radial height and inclination, and satisfactory alignment on the PA vie w. There is also a non-displaced ulnar styloid base fracture. Fracture site only mildly changed from original radiographs again reviewed today from 04/05/2025.. Psych Appearance: grossly normal Affect: normal affect Attitude: cooperative Office Procedures Casting/Splints 16131-Nbnb/Wrist Cast Application Procedure code (CPT) selection complete Assessment & Plan Assessment & Plan (1) Closed fracture distal radius and ulna: Code(s): S52.509A - Unspecified fracture of the lower end of unspecified radius, initial encounter for closed fracture; S52.609A - Unspecified fracture of lower end of unspecified ulna, initial encounter for closed fracture Category: Medical Plan 1. Left distal radius and ulnar styloid fracture Date of injury 04/05/2025 Patient is educated about this condition Patient is educated about the typical recovery course At this time, due to the severity of the patient's fracture and the degree of comminution and displacement he is experiencing, combined with only very early evidence of healing, I feel it is best place the patient back into a cast at this time Patient understands this in his amenable to this plan, as he would like to avoid any surgical intervention if at all possible Patient was placed into a short-arm cast at this time Patient is educated on proper cast care and precautions Follow-up in 1-2 weeks for cast removal, anticipate Velcro wrist splint placement at that time, sooner with any acute concerns Orders: Orders XR wrist LT min 3V Today M25.532 - Pain in left wrist Coding Level of Care Code Global (31488) Diagnoses Closed fracture distal radius and ulna S52.509A; S52.609A CPT Codes Casting - CPT: 66408-Dhcq/Wrist Cast Application ([id number])
[2025-05-08 10:11] VITALS: BMI 23.9
== END 2025-05-08 10:58 | disposition home or self-care (01) ==
LOC: HO.HOS 09:46
DX: S52.592A Other fractures of lower end of left radius, initial encounter for closed fracture (principal); S52.692A Other fracture of lower end of left ulna, initial encounter for closed fracture
CPT/HCPCS: 29075; 99024

== ENCOUNTER → 2025-05-08 09:46 | Outpatient (BNV) | payer OTHER, SELFPAY | PROVIDERS: Visit Provider Radiology Diagnostic Radiology | DX: S52.512A Displaced fracture of left radial styloid process, initial encounter for closed fracture (principal); S52.612A Displaced fracture of left ulna styloid process, initial encounter for closed fracture | CPT/HCPCS: 73110 ==

== ENCOUNTER 2025-05-24 08:47 | Outpatient (REF) | payer OTHER, SELFPAY ==
--- NOTE | ~2025-05-24 | XR_ITS ---
EXAMINATION: XR WRIST 3 OR MORE VIEWS LEFT HISTORY: M25.532 - Pain in left wrist COMPARISON: Comparison is made with the prior examination dated 05/08/2025. FINDINGS: Three views of the left wrist are submitted. Osseous mineralization is normal. Again seen is a comminuted intra-articular fracture of the distal radius and an associated ulnar styloid fracture. The fracture lines remain visible. The joint spaces are preserved. There are vascular calcifications. XR/XR wrist LT min 3V IMPRESSION: Comminuted intra-articular fracture of the distal radius with an associated ulnar styloid fracture without significant change. Electronically signed by: Roland Benitez MD 05/24/2025 09:37 AM EDT
== END 2025-05-24 08:48 | disposition home or self-care (01) ==
LOC: HO.HOSX 08:47
PROVIDERS: PCP Nurse Practitioner Family
DX: S52.572D Other intraarticular fracture of lower end of left radius, subsequent encounter for closed fracture with routine healing (principal); S52.612D Displaced fracture of left ulna styloid process, subsequent encounter for closed fracture with routine healing; W11.XXXD Fall on and from ladder, subsequent encounter
CPT/HCPCS: 73110; 99212

== ENCOUNTER 2025-05-24 08:47 | Outpatient (AMB) | payer OTHER, SELFPAY ==
[2025-05-24 09:04] VITALS: BMI 24.0
--- NOTE | 2025-05-24 09:04 | MHC.OFFVIS ---
Vital Signs 05/24/25 09:04 Height 6 ft Weight 177 lb BMI 24.0 Intake Visit Reasons: OV-LT distal radius and ulna fx DOI 04/05/25-w/xr Intake Note: Vinnie is a 69 year old right hand dominant male who presents today for a follow up visit for his left distal radius & ulnar styloid fracture, from a fall off a ladder, DOI: 04/05/25. On 05/08/25 patient was placed back into a short arm cast. Cast removed in office. States he has no pain and is doing well. Allergies No Known Allergies Allergy (Verified 05/24/25 09:06) HPI HPI OV-LT distal radius and ulna fx DOI 04/05/25-w/xr: Details: Vinnie is a 69 year old right hand dominant male who presents today for a follow up visit for his left distal radius & ulnar styloid fracture, from a fall off a ladder, DOI: 04/05/25. On 05/08/25 patient was placed back into a short arm cast. Cast removed in office. States he has no pain and is doing well. [facility] Medical History (Updated 04/11/25 @ 09:58 by HITESH Reyes) History of wrist fracture Nicotine dependence, cigarettes, uncomplicated T1DM (type 1 diabetes mellitus) Essential hypertension Hyperlipidemia LDL goal <100 Surgical History History of carpal tunnel surgery of left wrist History of carpal tunnel surgery of right wrist Family History Father No problems noted. Mother No problems noted. Social History Household Members: Spouse Housing: House Alcohol intake: never Patient Tobacco Use Status: Former Tobacco user e-Cigarette/Vaping Use: Never Used Second Hand Smoke Exposure: No Substance Use Type: Marijuana Current occupational status: employed Current occupation: [employer] Current occupational exposures/hazards: No Cognitive needs: No Hearing needs: No Vision needs: No Review of Systems Const All systems reviewed & are unremarkable except as noted in HPI and below Physical Exam Vital Signs: BMI result Body Mass Index 24.0 Const General: no acute distress and alert Orientation/consciousness: patient oriented x3 Neuro General: patient oriented x3 Extrem Other: Evaluation of Left Upper Extremity: The patient is alert, oriented, and in no acute distress He can bring his fingers to his palm and back into extension He can pronate to ~70 degrees He can supinate to ~450 degrees Fracture site non-tender Sensation intact to the tips of all digits Cap refill is brisk ER physician note from 04/05/2025: ?No open wounds ? reported in physician note Radiographs: 3 views of the left wrist were taken, viewed, and compared to radiographs from 04/05/25 by me today in clinic. They show a very distal comminuted intra-articular distal radius fracture now with ~13 degrees apex volar angulation, loss of radial height and inclination, and satisfactory alignment on the PA view. There is also a non-displaced ulnar styloid base fracture. Fracture site only mildly changed from original radiographs again reviewed today from 04/05/2025.. Psych Appearance: grossly normal Affect: normal affect Attitude: cooperative Assessment & Plan Assessment & Plan (1) Closed fracture distal radius and ulna: Code(s): S52.509A - Unspecified fracture of the lower end of unspecified radius, initial encounter for closed fracture; S52.609A - Unspecified fracture of lower end of unspecified ulna, initial encounter for closed fracture Category: Medical Plan 1. Left distal radius and ulnar styloid fracture Date of injury 04/05/2025 Patient is educated about this condition Patient is educated about the typical recovery course Patient is provided with a Velcro wrist splint to be worn while awake and active Can remove while at rest to work on early range of motion of the wrist Patient understands this in his amenable to this plan, as he would like to avoid any surgical intervention if at all possible Follow-up in 3-4 weeks with repeat x-rays for reassessment, sooner with any acute concerns Orders: Orders XR wrist LT min 3V Today M25.532 - Pain in left wrist Coding Level of Care Code Global (89892) Diagnoses Closed fracture distal radius and ulna S52.509A; S52.609A
== END 2025-05-24 09:55 | disposition home or self-care (01) ==
LOC: HO.HOS 08:47
PROVIDERS: PCP Nurse Practitioner Family
DX: S52.509A Unspecified fracture of the lower end of unspecified radius, initial encounter for closed fracture (principal); S52.609A Unspecified fracture of lower end of unspecified ulna, initial encounter for closed fracture
CPT/HCPCS: 99024

== ENCOUNTER → 2025-05-24 09:27 | Outpatient (BNV) | payer OTHER, SELFPAY | PROVIDERS: PCP Nurse Practitioner Family; Visit Provider Radiology Diagnostic Radiology | DX: S52.571K Other intraarticular fracture of lower end of right radius, subsequent encounter for closed fracture with nonunion (principal) | CPT/HCPCS: 73110 ==

== ENCOUNTER 2025-06-05 13:52 | Outpatient (AMB) | payer OTHER, SELFPAY ==
--- NOTE | 2025-06-05 14:03 | A.OFFPC_ITS ---
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 Accompanied by: Self / Same As Patient Allergies No Known Allergies Allergy (Verified 06/05/25 14:55) Medication List - Last Reconciled 06/05/25 by KATHARINA Kelley-GARRET acetone (urine) test (Ketone Urine Test strips) prn glucose over 250, illness, nausea, blood-glucose meter (FreeStyle Lite Meter kit) As directed 4x/day blood-glucose sensor (Dexcom G6 Sensor device) As directed blood-glucose transmitter (Dexcom G6 Transmitter device) As directed blood-glucose,lead accountant,cont As directed cilostazol 100 mg PO BID 90 days ezetimibe 10 mg PO DAILY 30 days glucagon 3 mg/actuation (Baqsimi) 3 mg intranasal ONCE 30 days glucagon 3 mg/actuation (Baqsimi) 3 mg intranasal ONCE PRN 30 days insulin glargine (Lantus Solostar U-100 Insulin) 13 units (0.13 mL) subcut BEDTIME 90 days insulin lispro (Humalog KwikPen (U-100) Insulin) 1 sliding scale dose subcut USEASDIRECTD lisinopril 30 mg (1.5 x 20 mg) PO DAILY pen needle, diabetic USE DIRECTED SEVEN TIMES PER DAY rosuvastatin 40 mg PO DAILY 30 days Tobacco use date assessed: 06/05/25 Fall risk assessment: No Falls in past year Last assessed Fall Risk: 06/05/25 Dental Screening Dental Screen Date: 06/05/25 Did you have a dental visit in the last 12 months?: Yes Did you have a dental problem in the last 6 months where you did not have access to dental care?: No Was dental information given to patient?: Patient has dentist HPI Pain HPI Details Chief Complaint The patient presents with right lower back pain radiating to the right lower ext remity. History of Present Illness The patient is a 69-year-old male presenting with right lower back pain with radiculopathy. He developed significant right lower back pain with radicular symptoms to the right lower extremity, groin, anterior thigh, and camp to foot approximately two weeks ago. He reports weakness in the right lower extremity, with more weakness than radiculopathy currently, although radiculopathy is noted in the right anterior thigh during the exam. The patient visited urgent care around May 29, where lumbar x-rays revealed significant arthritis. He was prescribed a Medrol Dosepak and lidocaine patches, which did not alleviate his symptoms. He denies symptoms of cauda equina syndrome and was positive for straight leg raises on the right side. The patient fractured his left forearm about a month and a half ago after falling 8 feet (ladder) Social History Health Maintenance Review of Systems - Musculoskeletal: Reports right lower b ack pain with radiculopathy, weakness in right lower extremity - Neurological: Denies symptoms of cauda equina syndrome Physical Exam General: Cooperative, healthy appearing, comfortable, no acute distress and well developed Orientation: Patient oriented x3 Limitations: No limitations Head: Normal to inspection Ears: Hearing grossly normal bilaterally Nose: Normal external nose present Face and sinus: Normal facial exam Eyes: Appearance normal, both eyes and all related structures Neck: Normal visual inspection and Yes full ROM Respiratory: Diminished but still clear to auscultation bilaterally Cardiovascular: Regular rate and rhythm. Normal S1 and S2. Systolic murmur noted GI: Normal to inspection. Soft to palpation and nontender Skin: No rashes or lesions noted Neuro: Patient oriented x3. Positive straight leg raises on the right side. Weakness in the right lower extremity. Positive dorsalis pedis pulse, positive patellar reflex Extremities: Normal to inspection. Weakness in the right lower extremity, no foot drop noted Results - X-ray: Significant arthritis noted Plan The patient will be referred to physical therapy to address the right lower back pain and associated radiculopathy. An MRI will be ordered to further evaluate the underlying causes of the symptoms. Follow-up will be scheduled to monitor the patient's progress and response to the interventions. Discussion Notes I discussed with the patient the plan to refer him to physical therapy and order an MRI to further evaluate his symptoms. I advised him to follow up with me in the near future and to contact me with any further questions, concerns, or if his condition worsens. Patient Instructions - Attend physical therapy sessions as sc heduled. - Complete the MRI as ordered. - Follow up with the doctor as advised. - Contact the doctor if symptoms worsen or if there are any questions or concerns. [facility] Medical History History of wrist fracture Nicotine dependence, cigarettes, uncomplicated T1DM (type 1 diabetes mellitus) Essential hypertension Hyperlipidemia LDL goal <100 Surgical History History of carpal tunnel surgery of left wrist History of carpal tunnel surgery of right wrist Family History Father No problems noted. Mother No problems noted. Social History Household Members: Spouse Housing: House Alcohol intake: never Patient Tobacco Use Status: Former Tobacco user e-Cigarette/Vaping Use: Never Used Second Hand Smoke Exposure: No Substance Use Type: Marijuana Current occupational status: employed Current occupation: [employer] Current occupational exposures/hazards: No Cognitive needs: No Hearing needs: No Vision needs: No Questionnaire PHQ-9 Over the last 2 weeks, how often have you been bothered by any of the following problems? 33214 - PHQ-9 Billing: Patient declined-do not bill Source: Developed by Drs. Roland Navarrete, Gabby Combs, Jaylen Kay and colleagues, with an educational leila from [employer]. Thrive Questionnaire Date Thrive assessed: 02/15/25 I am a: Patient What is your living situation today?: I have a steady place to live Within the past 12 months, did the food you bought not last and you didn't have the money to get more?: Never true Within the past 12 months, did you worry whether your food would run out before you got money to buy more?: Never true Do you have trouble paying for medicines?: No Do you have trouble getting transportation to medical appointments?: No Do you have trouble paying your heating and electricity bill?: No Do you have trouble taking care of your child, family member or friend?: No Do you have trouble with day-to-day activities such as bathing, preparing meals, shopping, managing finances, etc.?: No Are you currently unemployed and looking for a job?: No Are you interested in more education?: No Please select the resources that you would like help with: None Currently or been in a relationship where the following occur: No concerns reported THRIVE Score: 0 JASON-7 AMB Questionnaire JASON-7 Date JASON - 7 assessed: 06/05/25 Feeling nervous, anxious, or on edge: 0 = Not at all Not being able to stop or control worryin = Not at all Worrying too much about different things: 0 = Not at all Trouble relaxin = Not at all Being so restless that it is hard to sit still: 0 = Not at all Becoming easily annoyed or irritable: 0 = Not at all Feeling afraid as if something awful might happen: 0 = Not at all Total JASON-7 score (0-4 normal; 5-9 mild; 10-14 moderate; 15-21 severe): 0 Source: Developed by Drs. Roland Navarrete, Gabby Combs, Jaylen Kay and colleagues, with an educational leila from [employer]. JASON-7 Assessment Billing JASON-7 Assessment Tool: JASON-7 Assessment 35079 Physical exam (Primary Care) Vital Signs: Last Vital Signs Pulse 75 06/05/25 14:04 BP 138/60 06/05/25 14:04 Pulse Ox 95 06/05/25 14:04 Oxygen Delivery Method Room Air 06/05/25 14:04 BMI result Body Mass Index 22.9 Tobacco/Smoking Status: Tobacco use Status Tobacco use date assessed 06/05/25 06/05/25 14:05 Patient Tobacco Use Status Former Tobacco user 06/05/25 14:05 e-Cigarette/Vaping Use Never Used 06/05/25 14:05 Thrive Assessment: Date of Thrive Assessment Date Thrive assessed 02/15/25 06/05/25 14:05 Currently or been in a relationship where the following occur: No concerns reported Coding Level of Care Code Est Pt Level 3 (42733) Diagnoses Low back pain radiating to lower extremity M54.50; M79.606 Weakness of right leg R29.898 Additional Codes JASON-7 Assessment Billing - JASON-7 Assessment Tool: JASON-7 Assessment 29370 ([id number]) Assessment & Plan Assessment & Plan (1) Low back pain radiating to lower extremity: Code(s): M54.50 - Low back pain, unspecified; M79.606 - Pain in leg, unspecified Category: Medical (2) Weakness of right leg: Code(s): R29.898 - Other symptoms and signs involving the musculoskeletal system Category: Medical Plan . Orders: Orders MR lumbar spine wo con Today M54.50 - Low back pain, unspecified, M79.606 - Pain in leg, unspecified, R29.898 - Other symptoms and signs involving the musculoskeletal system PT Evaluation and Treatment Today M54.50 - Low back pain, unspecified, M79.606 - Pain in leg, unspecified, R29.898 - Other symptoms and signs involving the musculoskeletal system
[2025-06-05 14:04] VITALS: BP 138/60; PULSE 75; O2SAT 95; BMI 22.9
== END 2025-06-05 16:24 | disposition home or self-care (01) ==
LOC: HO.HMCC 13:53
PROVIDERS: PCP Nurse Practitioner Family; Visit Provider Nurse Practitioner Family
DX: M54.50 Low back pain, unspecified (principal); M79.606 Pain in leg, unspecified; R29.898 Other symptoms and signs involving the musculoskeletal system

== ENCOUNTER → 2025-06-05 13:52 | Outpatient (BNVA) | payer OTHER, SELFPAY | PROVIDERS: PCP Nurse Practitioner Family; Visit Provider Nurse Practitioner Family | DX: M54.50 Low back pain, unspecified (principal); M79.606 Pain in leg, unspecified; R29.898 Other symptoms and signs involving the musculoskeletal system; Z13.39 Encounter for screening examination for other mental health and behavioral disorders | CPT/HCPCS: 96127; 99212 ==

== ENCOUNTER 2025-06-19 08:58 | Outpatient (REF) | payer OTHER, SELFPAY ==
--- NOTE | ~2025-06-19 | XR_ITS ---
EXAMINATION: XR WRIST, LEFT CLINICAL INFORMATION: M25.532 - Pain in left wrist COMPARISON: May 24, 2025. TECHNIQUE: PA, lateral, and oblique views of the left wrist. FINDINGS: There is an impacted comminuted intra-articular fracture distal epiphysis and metaphysis of the radius without gross callus formation. Nondisplaced fracture styloid process of the ulna. Carpal bones are intact. Metacarpal bones are intact. Focal calcification in the soft tissues of the ulnar aspect proximal interphalangeal joint of the fifth digits. Vascular calcifications. XR/XR wrist LT min 3V IMPRESSION: Comminuted, impacted, intra-articular fracture, distal radius without gross healing. Nondisplaced fracture styloid processes, left ulna. No gross healing. Atherosclerosis disease, peripheral. Electronically signed by: Louis Jackman MD 06/19/2025 09:48 AM EDT
== END 2025-06-19 08:59 | disposition home or self-care (01) ==
LOC: HO.HOSX 08:58
DX: S52.572D Other intraarticular fracture of lower end of left radius, subsequent encounter for closed fracture with routine healing (principal); S52.612D Displaced fracture of left ulna styloid process, subsequent encounter for closed fracture with routine healing; M25.532 Pain in left wrist; X58.XXXD Exposure to other specified factors, subsequent encounter
CPT/HCPCS: 73110; 99212

== ENCOUNTER 2025-06-19 09:31 | Outpatient (AMB) | payer OTHER, SELFPAY ==
[2025-06-19 09:37] VITALS: BMI 22.9
--- NOTE | 2025-06-19 09:37 | A.OFFVIS_ITS ---
Vital Signs 06/19/25 09:37 Height 6 ft Weight 169 lb BMI 22.9 Intake Visit Reasons: OV-LT distal radius and ulna fx DOI 04/05/25-w/xr Intake Note: Vinnie is a 69 year old right hand dominant male who presents today for follow up status post left distal radius & ulnar styloid fracture, from a fall off a ladder, DOI: 04/05/25. At his last visit he was provided with a velcro wrist brace to be worn while awake and active. He was advised to remove while at rest to work on early range of motion of the wrist. Today patient reports he is doing great. He continues using the brace at work and when he goes fishing. Denies numbness, tingling, finger locking. No pain medications at this point. Allergies No Known Allergies Allergy (Verified 06/19/25 09:37) HPI HPI OV-LT distal radius and ulna fx DOI 04/05/25-w/xr: Details: Vinnie is a 69 year old right hand dominant male who presents today for follow up status post left distal radius & ulnar styloid fracture, from a fall off a ladder, DOI: 04/05/25. At his last visit he was provided with a velcro wrist brace to be worn while awake and active. He was advised to remove while at rest to work on early range of motion of the wrist. Today patient reports he is doing great. He continues using the brace at work and when he goes fishing. Denies numbness, tingling, finger locking. No pain medications at this point. Patient reports that his range of motion is still limited in the left wrist, but has improved since previous evaluation. [facility] Medical History History of wrist fracture Nicotine dependence, cigarettes, uncomplicated T1DM (type 1 diabetes mellitus) Essential hypertension Hyperlipidemia LDL goal <100 Surgical History History of carpal tunnel surgery of left wrist History of carpal tunnel surgery of right wrist Family History Father No problems noted. Mother No problems noted. Social History Household Members: Spouse Housing: House Alcohol intake: never Patient Tobacco Use Status: Former Tobacco user e-Cigarette/Vaping Use: Never Used Second Hand Smoke Exposure: No Substance Use Type: Marijuana Current occupational status: employed Current occupation: [employer] Current occupational exposures/hazards: No Cognitive needs: No Hearing needs: No Vision needs: No Review of Systems Const All systems reviewed & are unremarkable except as noted in HPI and below Physical Exam Vital Signs: BMI result Body Mass Index 22.9 Const General: no acute distress and alert Orientation/consciousness: patient oriented x3 Neuro General: patient oriented x3 Extrem Other: Evaluation of Left Upper Extremity: The patient is alert, oriented, and in no acute distress He can bring his fingers to his palm and back into extension He can pronate to ~ 100 degrees He can supinate to ~ 80 degrees Patient is able to forward flex the right wrist to approximately 30 degrees in his able to extend to approximately 20 degrees Fracture site non-tender Sensation intact to the tips of all digits Cap refill is brisk Radiographs: 3 views of the left wrist were taken, viewed, and compared to radiographs from 04/05/25 by me today in clinic. They show a very distal comminuted intra- articular distal radius fracture now with ~13 degrees apex volar angulation, loss of radial height and inclination, and satisfactory alignment on the PA view. There is also a non-displaced ulnar styloid base fracture. There is evidence of interval bony healing since previous x-rays Psych Appearance: grossly normal Affect: normal affect Attitude: cooperative Assessment & Plan Assessment & Plan (1) Closed fracture distal radius and ulna: Code(s): S52.509A - Unspecified fracture of the lower end of unspecified radius, initial encounter for closed fracture; S52.609A - Unspecified fracture of lower end of unspecified ulna, initial encounter for closed fracture Category: Medical Plan 1. Left distal radius and ulnar styloid fracture Date of injury 04/05/2025 Patient is educated about this condition Patient is educated about the typical recovery course Patient is provided with a Velcro wrist splint to be worn while awake and active Can remove while at rest to work on early range of motion of the wrist Patient understands this in his amenable to this plan, as he would like to avoid any surgical intervention if at all possible Follow-up in 4 weeks with repeat x-rays for reassessment, sooner with any acute concerns Orders: Orders OT Evaluation and Treatment Today S52.509A - Unspecified fracture of the lower end of unspecified radius, initial encounter for closed fracture, S52.609A - Unspecified fracture of lower end of unspecified ulna, initial encounter for closed fracture XR wrist LT min 3V Today M25.532 - Pain in left wrist Coding Level of Care Code Global (45498) Diagnoses Closed fracture distal radius and ulna S52.509A; S52.609A
== END 2025-06-19 09:57 | disposition home or self-care (01) ==
LOC: HO.HOS 09:32
PROVIDERS: PCP Nurse Practitioner Family
DX: S52.509A Unspecified fracture of the lower end of unspecified radius, initial encounter for closed fracture (principal); S52.609A Unspecified fracture of lower end of unspecified ulna, initial encounter for closed fracture
CPT/HCPCS: 99024

== ENCOUNTER → 2025-06-19 09:33 | Outpatient (BNV) | payer OTHER, SELFPAY | PROVIDERS: Visit Provider Radiology Diagnostic Radiology | DX: S52.572G Other intraarticular fracture of lower end of left radius, subsequent encounter for closed fracture with delayed healing (principal) | CPT/HCPCS: 73110 ==

== ENCOUNTER 2025-07-11 15:00 | Outpatient (RCR) | payer OTHER, SELFPAY ==
--- NOTE | 2025-06-26 14:49 | MHC.PT.EP ---
[facility] [place] Office [place] Office [place] Office [address] Goran Fortune [address] [phone] F: [phone] F: [phone] F: [phone] F: [phone] Physical Therapy Plan of Care Date of Evaluation: 06/26/25 Date of Surgery: Diagnosis: This is a 69 yo male presenting to skilled PT with a script for low back pain. Assessment: This is a 69 yo male presenting to skilled PT with a script for low back pain. Patient reporting that about 2 months ago when he fell off a ladder (fractured L wrist). About 2 weeks after that his back started to hurt him. Pain is located R side low back (stabbing, comes and goes) and this radiates into the leg (anterior to the knee, achy, weak). He reports one incident of the leg giving out and since then he has been favoring this limb. He takes some tylenol for pain. Pain increases with walking, transfers off of the floor and stairs. ADL's are intact, driving+ and still working. Assessment reveals pain that ranges from up to a 5/10 at the worst. Patient demos decreased lumbar and thoracic ROM, strength of core, back and R LE, TTP at R QL and impaired posture with forward head, trunk and rounded shoulders. Based on functional limitations, impaired QOL and pain tolerance patient is a good candidate for skilled PT 2x/wk for 4wks (will trial HEP on his own and follow up in 2 weeks). Frequency and Duration: The patient will be seen 2x/wk for 4wks Short Term Goals: Pt will demonstrate improved postural awareness and understanding of core engagement with supine and standing tasks without cues throughout session to improve overall back safety in 2 weeks. Pt will demonstrate centralization of sx in 2 weeks. Pt will continue to reinforce precautions, sitting, standing and ADL modifications with proper body mechanics in 2 wks. Alf Goals: Pt will demonstrate improved outcome measure by 5 points in 4 weeks for improved functional mobility. Pt will demonstrate ability to bend and lift WNL min to no pain for household tasks in 4 wks. Pt will be I in HEP and compliant in 4wks Treatment Plan: Modalities to reduce pain, spasms and effusion. Manual therapy to restore motion and function. Therapeutic exercise to improve strength and flexibility. Neuromuscular re-education for posture and balance. Therapeutic activities to return to functional activities of daily living. Electronically signed by: Yara Muro PT Please sign and return to therapist. Thank you for your referral.
--- NOTE | 2025-08-06 08:23 | MHC.PT.DC ---
[facility] [place] Office [place] Office [place] Office [address] Goran Fortune [address] [phone] F: [phone] F: [phone] F: [phone] F: [phone] Physical Therapy Discharge Report Diagnosis: This is a 69 yo male presenting to skilled PT with a script for low back pain. Date of Surgery: Date of Evaluation: 06/26/25 Date of Discharge: 08/06/25 Treatments to Date: 2 Cancellations to Date: 0 No Shows to Date: 0 Discharge Status: Independent with HEP Patient Elected to Stop Discharge Summary: Patient came to 2 sessions of PT for an HEP. He wanted continue to do these on his own for the next few weeks. He is to see his PCP in a few weeks as well and I educated him that if he continues to have some symptoms that concern him, to talk with his provider. Chart will be DC'd in 30 days unless patient returns with further questions or concerns. Electronically signed by: Shane Muro PT Please sign and return to therapist. Thank you for your referral.
== END 2025-08-06 08:23 | disposition home or self-care (01) ==
LOC: HO.PTCHIC 15:00
PROVIDERS: PCP Nurse Practitioner Family; Visit Provider Nurse Practitioner Family
DX: M54.50 Low back pain, unspecified (principal); M79.661 Pain in right lower leg; R29.898 Other symptoms and signs involving the musculoskeletal system
CPT/HCPCS: 97110; 97161

== ENCOUNTER 2025-07-20 13:25 | Outpatient (AMB) | payer OTHER, SELFPAY ==
--- NOTE | 2025-07-20 13:45 | A.OFFVIS_ITS ---
Vital Signs 07/20/25 13:50 Height 6 ft Weight 169 lb BMI 22.9 Intake Visit Reasons: OV-LT distal radius and ulna fx DOI 04/05/25-w/xr Intake Note: Vinnie is a 69 year old right hand dominant male who presents today for follow up status post Left Distal Radius & Ulnar Styloid Fracture, DOI: 04/05/25. On 06/19/25 he was provided with a Velcro wrist brace to be worn while awake and active. A referral to OT was placed. Patient reports today he is doing his own OT. He has been managing well at work. He thinks he can return to full duty. Allergies No Known Allergies Allergy (Verified 07/20/25 13:50) HPI HPI OV-LT distal radius and ulna fx DOI 04/05/25-w/xr: Details: Vinnie is a 69 year old right hand dominant male who presents today for follow up status post Left Distal Radius & Ulnar Styloid Fracture, DOI: 04/05/25. On 06/19/25 he was provided with a Velcro wrist brace to be worn while awake and active. A referral to OT was placed. Patient reports today he is doing his own OT. He has been managing well at work. He thinks he can return to full duty. [facility] Medical History History of wrist fracture Nicotine dependence, cigarettes, uncomplicated T1DM (type 1 diabetes mellitus) Essential hypertension Hyperlipidemia LDL goal <100 Surgical History History of carpal tunnel surgery of left wrist History of carpal tunnel surgery of right wrist Family History Father No problems noted. Mother No problems noted. Social History Household Members: Spouse Housing: House Alcohol intake: never Patient Tobacco Use Status: Former Tobacco user e-Cigarette/Vaping Use: Never Used Second Hand Smoke Exposure: No Substance Use Type: Marijuana Current occupational status: employed Current occupation: [employer] Current occupational exposures/hazards: No Cognitive needs: No Hearing needs: No Vision needs: No Review of Systems Const All systems reviewed & are unremarkable except as noted in HPI and below Physical Exam Vital Signs: BMI result Body Mass Index 22.9 Const General: no acute distress and alert Orientation/consciousness: patient oriented x3 Neuro General: patient oriented x3 Extrem Other: Evaluation of Left Upper Extremity: The patient is alert, oriented, and in no acute distress He can bring his fingers to his palm and back into extension He can pronate to ~ 100 degrees He can supinate to ~ 80 degrees Patient is able to forward flex the right wrist to approximately 60 degrees in his able to extend to approximately 40 degrees Fracture site non-tender Sensation intact to the tips of all digits Cap refill is brisk Psych Appearance: grossly normal Affect: normal affect Attitude: cooperative Assessment & Plan Assessment & Plan (1) Closed fracture distal radius and ulna: Code(s): S52.509A - Unspecified fracture of the lower end of unspecified radius, initial encounter for closed fracture; S52.609A - Unspecified fracture of lower end of unspecified ulna, initial encounter for closed fracture Category: Medical Plan 1. Left distal radius and ulnar styloid fracture Date of injury 04/05/2025 Patient is educated about this condition Patient is educated about the typical recovery course No further splinting necessary at this time Patient is advised that he can slowly work up to a 10 lb weight limit over the course of the next 4-6 weeks, should not go beyond this until next evaluation Follow-up in 6-8 weeks for reassessment, sooner with any acute concerns Coding Level of Care Code Est Pt Level 3 (37187) Diagnoses Closed fracture distal radius and ulna S52.509A; S52.609A
[2025-07-20 13:50] VITALS: BMI 22.9
== END 2025-07-20 13:55 | disposition home or self-care (01) ==
LOC: HO.HOS 13:26
PROVIDERS: PCP Nurse Practitioner Family
DX: S52.502A Unspecified fracture of the lower end of left radius, initial encounter for closed fracture (principal); S52.602A Unspecified fracture of lower end of left ulna, initial encounter for closed fracture
CPT/HCPCS: 99213

== ENCOUNTER 2025-09-07 10:46 | Outpatient (AMB) | payer OTHER, SELFPAY ==
[2025-09-07 11:10] VITALS: BMI 22.9
--- NOTE | 2025-09-07 11:10 | A.OFFVIS_ITS ---
Vital Signs 09/07/25 11:10 Height 6 ft Weight 169 lb BMI 22.9 Intake Visit Reasons: OV-LT distal radius and ulna DOI 04/05/25 Intake Note: Vinnie is a 69 year old right hand dominant male who presents today for follow up status post Left Distal Radius & Ulnar Styloid Fracture, DOI: 04/05/25. At her last visit she was notified no further splinting is necessary. He was advised to slowly work up to a 10 lb weight limit over the course of the next 4- 6 weeks. Patient reports he is doing well. He denies any numbness, tingling, or pain. He is no longer taking any pain medications. Allergies No Known Allergies Allergy (Verified 09/07/25 11:12) HPI HPI OV-LT distal radius and ulna DOI 04/05/25: Details: Vinnie is a 69 year old right hand dominant male who presents today for follow up status post Left Distal Radius & Ulnar Styloid Fracture, DOI: 04/05/25. At her last visit she was notified no further splinting is necessary. He was advised to slowly work up to a 10 lb weight limit over the course of the next 4- 6 weeks. Patient reports he is doing well. He denies any numbness, tingling, or pain. He is no longer taking any pain medications. [facility] Medical History History of wrist fracture Nicotine dependence, cigarettes, uncomplicated T1DM (type 1 diabetes mellitus) Essential hypertension Hyperlipidemia LDL goal <100 Surgical History History of carpal tunnel surgery of left wrist History of carpal tunnel surgery of right wrist Family History Father No problems noted. Mother No problems noted. Social History Household Members: Spouse Housing: House Alcohol intake: never Patient Tobacco Use Status: Former Tobacco user e-Cigarette/Vaping Use: Never Used Second Hand Smoke Exposure: No Substance Use Type: Marijuana Current occupational status: employed Current occupation: [employer] Current occupational exposures/hazards: No Cognitive needs: No Hearing needs: No Vision needs: No Review of Systems Const All systems reviewed & are unremarkable except as noted in HPI and below Physical Exam Vital Signs: BMI result Body Mass Index 22.9 Const General: no acute distress and alert Orientation/consciousness: patient oriented x3 Neuro General: patient oriented x3 Extrem Other: Evaluation of Left Upper Extremity: The patient is alert, oriented, and in no acute distress He can bring his fingers to his palm and back into extension He can pronate to ~ 100 degrees He can supinate to ~ 80 degrees Patient is able to forward flex the right wrist to approximately 80 degrees in his able to extend to approximately 50 degrees Fracture site non-tender Sensation intact to the tips of all digits Cap refill is brisk Psych Appearance: grossly normal Affect: normal affect Attitude: cooperative Assessment & Plan Assessment & Plan (1) Closed fracture distal radius and ulna: Code(s): S52.509A - Unspecified fracture of the lower end of unspecified radius, initial encounter for closed fracture; S52.609A - Unspecified fracture of lower end of unspecified ulna, initial encounter for closed fracture Category: Medical Plan 1. Left distal radius and ulnar styloid fracture Date of injury 04/05/2025 Patient is educated about this condition Patient is educated about the typical recovery course No further splinting necessary at this time Patient is advised he may begin a return to full normal activity over the next 3-4 weeks, is provided a work note stating this Follow-up as needed with any acute concerns Coding Level of Care Code Est Pt Level 3 (55873) Diagnoses Closed fracture distal radius and ulna S52.509A; S52.609A
== END 2025-09-07 11:21 | disposition home or self-care (01) ==
LOC: HO.HOS 10:47
PROVIDERS: PCP Nurse Practitioner Family
DX: S52.502A Unspecified fracture of the lower end of left radius, initial encounter for closed fracture (principal); S52.602A Unspecified fracture of lower end of left ulna, initial encounter for closed fracture
CPT/HCPCS: 99213

== ENCOUNTER 2025-09-12 09:43 | Outpatient (AMB) | payer OTHER, SELFPAY ==
[2025-09-12 10:02] VITALS: BP 136/56; PULSE 76; O2SAT 96; BMI 23.6
--- NOTE | 2025-09-12 10:02 | MHC.OFFVIS ---
Vital Signs 09/12/25 10:02 Height 6 ft Weight 173 lb 15.115 oz BMI 23.6 BP 136/56 L Blood Pressure Location Rt brachial Position Sitting Pulse 76 Pulse Source Pulse Oximeter Pulse Oximetry (%) 96 Oxygen Delivery Method Room Air Intake Visit Reasons: T2DM Intake Note: Patient present today to follow up on Type 1 Diabetes Mellitus. Last Diabetic eye exam was on: Due, 1 year ago has an upcoming appointment this month Last Podiatry exam was on: Does not see a Linoleum Floor Layer Most recent HbA1c: 7.0% 09/12/2025 Random Glucose- 246 mg/dl Telegraph Mechanic Required: No Accompanied by: Self / Same As Patient Allergies No Known Allergies Allergy (Verified 09/12/25 10:05) Medication List - Last Reconciled 09/12/25 by Roland Pennington MD acetone (urine) test (Ketone Urine Test strips) prn glucose over 250, illness, nausea, blood-glucose meter (FreeStyle Lite Meter kit) As directed 4x/day blood-glucose sensor (Dexcom G6 Sensor device) As directed blood-glucose transmitter (Dexcom G6 Transmitter device) As directed 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 UP TO 25U DAILY lisinopril 30 mg (1.5 x 20 mg) PO DAILY pen needle, diabetic USE DIRECTED SEVEN TIMES PER DAY rosuvastatin 40 mg PO DAILY 30 days HPI Comments Details: Patient is 69 yo male with DM type 1 diagnosed at age 12, who presents for management of diabetes. He was last seen 04/11/25 by Kristin Malloy NP . He has been well controlled since 2021. Hgb A1C 04/11/25 7.7%. At his last visit he was recommended to see a services manager due to the thickness of his toenails which he declined. We also briefly discussed a CeQur insulin patch pump. Jose was discussed in the past which had a higher copay. He remains on Lantus but no overnight lows. Past medical history: DM1, HTN, HLD Micro and macrovascular complications: none known Diabetes medications: Lantus 14 units Humalog 1-2 unit for his snacks. Breakfast 6 units Lunch 6 units Supper 8 units increase insulin 1-2 units for larger meals Correction factor for meals 1 unit for every 50 mg/dL over 150 up to a maximum of 5 units Dexcom average glucose: 143 14 day continuous glucose monitor report reviewed Glucose Managment indicator 6.7 % Days with CGM data 93 % TIme in ranges: 2 % very high (above 250) 19 % high ?(181-250) 77 % in range ?(70-180] 2 % low (69-55) 1 % ?very low (below 54) Interpretation ; hypoglycemia was occurring gently overnight No neuropathy: Denies numbness, tingling, pain or crampinscheduled this mo No Retinopathy: Last eye examination Has Nephropathy: 02/13/2021 microalbumin 45 05/02 eGFR>60 on ROBERTO- inhibitor Has HLD on Zetia and statin ldl 52 05/02 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 The liver contour is normal. Parenchymal echogenicity is normal. No focal hepatic lesion. There is no intrahepatic biliary duct dilatation seen [facility] Medical History History of wrist fracture Nicotine dependence, cigarettes, uncomplicated T1DM (type 1 diabetes mellitus) Essential hypertension Hyperlipidemia LDL goal <100 Surgical History History of carpal tunnel surgery of left wrist History of carpal tunnel surgery of right wrist Family History Father No problems noted. Mother No problems noted. Social History (Reviewed 06/05/25 @ 15:09 by Parveen Hardin [facility] Members: Spouse Housing: House Alcohol intake: never Patient Tobacco Use Status: Former Tobacco user e-Cigarette/Vaping Use: Never Used Second Hand Smoke Exposure: No Substance Use Type: Marijuana Current occupational status: employed Current occupation: [employer] Current occupational exposures/hazards: No Cognitive needs: No Hearing needs: No Vision needs: No Physical Exam Vital Signs: Last Vital Signs Pulse 76 09/12/25 10:02 BP 136/56 L 09/12/25 10:02 Pulse Ox 96 09/12/25 10:02 Oxygen Delivery Method Room Air 09/12/25 10:02 BMI result Body Mass Index 23.6 Absence of Cushingoid features. Absence of acromegalic features. Neck exam reveals nl size thyroid about 15 gms. No thyroid nodules palpable. No carotid bruits present. Lungs CTA. Heart S1 S2, Reg R/R. No M/R/ G. Skin exam reveals absence of vitiligo or acanthosis nigricans. Abdominal exam reveals Soft NT/ND with NA BS. No organomegaly present. Extrem Other: Visual exam of foot performed. No ulcerations or open lesions. No onchomycosis, no callouses.Pulses 2 + distally. Sensation intact to monofilament exam. Vibratory sensation sensed 10 seconds in right, 10 seconds in left with 128 Hz tuning fork Results AMB Hemoglobin A1c AMB Hemoglobin A1c 7.0 % Last Edit by HITESH Larson on 09/12/25 10:25 Results Reviewed Results Reviewed: Laboratory Last Values Glucose (Clinic) 246 mg/dL (60-115) H 09/12/25 10:09 Assessment & Plan Assessment & Plan (1) T1DM (type 1 diabetes mellitus): Code(s): E10.9 - Type 1 diabetes mellitus without complications Category: Medical Qualifiers: Diabetes mellitus complication status: without complication Qualified Code(s): E10.9 - Type 1 diabetes mellitus without complications Plan: This is a 66-year-old white male with a history of longstanding type 1 diabetes on basal-bolus insulin with excellent glycemic control and no known microvascular or macrovascular complications. He does have some episodes of hypoglycemia occurring overnight Plan is to consider decreasing Lantus to 12 units and by additional 2 units of continued hypoglycemia overnight. We will check lipid profile microalbumin to creatinine ratio Orders: Orders Lipid Panel Today E10.9 - Type 1 diabetes mellitus without complications Microalbumin, Random (w Creat) Today E10.9 - Type 1 diabetes mellitus without complications AMB Hemoglobin A1c Today E10.9 - Type 1 diabetes mellitus without complications Coding Level of Care Code Est Pt Level 4 (55416) Complex EM visit Add On G2211 Diagnoses Type 1 diabetes mellitus without complication E10.9 Diabetes mellitus complication status: without complication
[2025-09-12 10:14] LABS: Glucose, Whole Blood 246 mg/dL (60-115)
== END 2025-09-12 10:28 | disposition home or self-care (01) ==
LOC: HO.ENCR 09:44
PROVIDERS: Visit Provider Internal Medicine Endocrinology, Diabetes & Metabolism
DX: E10.9 Type 1 diabetes mellitus without complications (principal)
CPT/HCPCS: 99214; G2211

== ENCOUNTER → 2025-09-12 09:43 | Outpatient (BNVA) | payer OTHER, SELFPAY | PROVIDERS: Visit Provider Internal Medicine Endocrinology, Diabetes & Metabolism | DX: E10.9 Type 1 diabetes mellitus without complications (principal) | CPT/HCPCS: 82947; 83036 ==